=== PATIENT | male | born 1980 | race Caucasian/White ===

== ENCOUNTER 2022-02-27 18:03 | Emergency (ER) | payer OTHER, SELFPAY ==
[2022-02-27 18:17] VITALS: BP 145/88; PULSE 87; RESP 18; TEMP 36.4; O2SAT 100
--- NOTE | 2022-02-27 19:05 | ED.GENADULT ---
HPI - General Adult General Chief complaint: Unspecified Stated complaint: anxiety Source: patient Mode of arrival: ambulatory Limitations: no limitations History of Present Illness HPI narrative: Patient presents requesting refills on his medications. He indicates he ran out of Zoloft 100mg a few weeks ago. [place] and [place] would not fill it because the refill was two days early. He also ran out of lisinopril 10mg/hctz 12.5mg daily five days ago. He denies any chest pain or shortness of breath. He has a hx of migraines and being off his medications has caused an increase in his headaches. He has associated photophobia. He has an increase in anxiety since running out of his medication. 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 He utilizes AA. He spent several hours today trying to identify a new primary care provider without success. No additional complaints or concerns. Related Data Home Medications Medication Instructions Recorded Confirmed eszopiclone 2 mg tablet (Lunesta) 2 mg PO HS 02/27/22 02/27/22 lisinopril 10 1 tablet PO DAILY 02/27/22 02/27/22 mg-hydrochlorothiazide 12.5 mg tablet sertraline 100 mg tablet (Zoloft) 100 mg PO DAILY 02/27/22 02/27/22 trazodone 50 mg tablet 50 mg PO HS 02/27/22 02/27/22 Allergies Allergy/AdvReac Type Severity Reaction Status Date / Time No Known Allergies Allergy Verified 02/27/22 18:32 Review of Systems Review of Systems: CONSTITUTIONAL: Denies fever, chills, or sweats. EYES: Denies visual changes, redness, or discharge. ENT: Denies rhinorrhea, congestion, sore throat, or otalgia. CARDIOVASCULAR: Denies chest pain, palpitations, or edema. RESPIRATORY: Denies cough or dyspnea. GASTROINTESTINAL: Denies abdominal pain, nausea, vomiting, or diarrhea. GENITOURINARY: Denies dysuria or hematuria. SKIN: Denies rash or itching. MUSCULOSKELETAL: Denies back pain, joint pain, or myalgia. NEUROLOGIC: Reports headaches. Denies numbness, dizziness, or weakness. PSYCHIATRIC: Reports anxiety. Denies depression. [facility] Past Medical History Medical History Anxiety Hypertension Migraine PTSD (post-traumatic stress disorder) Surgical History Surgical History No pertinent past surgical history Family History Family History Mother No pertinent past medical history Social History Social History (Updated 02/27/22 @ 19:12 by Jose Dukes [facility], ) Alcohol intake: former Living arrangements: alone Gender identity (if verbalized by the patient): Male Spiritual care concerns: No Exam Narrative: GENERAL: Well-appearing, well-nourished, and in no acute distress. HEAD: Normocephalic, atraumatic. EYES: PERRLA and EOMI. ENT: Nares clear, no rhinorrhea or epistaxis. Mucous membranes moist. Oropharynx without tonsillar hypertrophy exudate or other lesions. Bilateral TMs pearly p[place]man nonbulging NECK: Supple. No adenopathy or masses. No carotid bruits or JVD CHEST: Clear to auscultation. No respiratory distress. No wheezes rales or rhonchi HEART: Regular rate and rhythm. No murmur heard. Normal peripheral pulses. ABDOMEN: Soft, nontender, nondistended, normal active bowel sounds. EXTREMITIES: Normal range of motion. No edema. SKIN: Warm, dry, no rash. NEURO: No focal deficits. Alert and oriented x3. PSYCH: Normal mood and affect. Course Course Emergency Course: This is a 41-year-old male who presents requesting refills on his medications. This seems reasonable. He will attempt to establish care with a new primary care provider. Also give him some Vistaril to hold him over in terms of his anxiety until his zoloft kicks in. He should follow up outpatient for further evaluation and return for worsening symptoms. Pt in a
== END 2022-02-27 19:13 | disposition home or self-care (01) ==
PROVIDERS: Emergency Provider Nurse Practitioner
DX: F41.9 Anxiety disorder, unspecified (principal); I10 Essential (primary) hypertension
CPT/HCPCS: 99211; G0463

== ENCOUNTER 2024-11-23 00:30 | Day surgery (SDC) | payer OTHER, SELFPAY ==
[2024-11-11 09:37] VITALS: BMI 31.3
--- OUTSIDE RECORDS SUMMARY | 2024-11-23 00:33 | XMS_ITS | Continuity of Care Document ---
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 Medication Details Route Status Patient Instructions Prescription Expires Prescription Number Last Dispense Date Ordering Provider Order Date Order Qty Source Adderall XR 20 mg oral capsule, extended release 1 cap(s), Oral, BID, SM to take 1 CAP PO QAM and 1 CAP PO Q1300 for total of 40mg total daily, # 180 cap(s), 0 total refill(s ), Maintenzander schreiber, Pharmacy : [facility] Oral (given by mouth) Ordered 2 2021 180.0 [id number] Adderall XR 20 mg oral capsule, extended release 1 cap(s), Oral, As Directed , Take 1 CAP PO QAM and Q1300; not to exceed 40mg PO total daily, # 14 cap(s), 0 total refill(s ), Maintena nce, PreAuth for previous agent Vyvanse was declined -need 1 week supply until next assessme nt, Pharmacy : [facility] Oral (given by mouth) Complet ed 01/05/2022 2 2021 14.0 [id number] escitalopra m 20 mg oral tablet escitalo pram 20 mg oral tablet Start Date: 03/16/20 Stop Date: 01/05/22 Status: Complete d Repeat number: 1 Complet ed 01/05/20222021 No Facilit y Access magnesium oxide 400 mg (241.3 mg elemental magnesium) oral tablet magnesiu m oxide 400 mg (241.3 mg elementa l magnesiu m) oral tablet Start Date: 03/08/20 Status: Ordered Repeat number: 1 Ordered 2019 No Facilit y Access nicotine 2 mg oral transmucosa l gum nicotine 2 mg oral transmuc osal gum Start Date: 07/31/19 Status: Ordered Repeat number: 1 Ordered 2019 No Facilit y Access riboflavin 100 mg oral tablet riboflav in 100 mg oral tablet Start Date: 03/08/20 Status: Ordered Repeat number: 1 Ordered 2019 No Facilit y Access sertraline 100 mg oral tablet 2 tab(s), Oral, Daily, # 180 tab(s), 0 total refill(s ), [facility], Pharmacy : [facility] Oral (given by mouth) Ordered 2021 180.0 [id number] sertraline 100 mg oral tablet 2 tab(s), Oral, Daily, # 60 tab(s), 0 total refill(s ), [facility], Pharmacy : [facility] Oral (given by mouth) Complet ed 01/05/2022 2 2021 60.0 [id number] sildenafil 100 mg oral tablet sildenaf il 100 mg oral tablet Start Date: 03/08/20 Status: Ordered Repeat number: 1 Ordered 2019 No Facilit y Access traZODone 100 mg oral tablet 1 tab(s), Oral, every day at bedtime, PRN sleep, # 90 tab(s), 0 total refill(s ), [facility], Pharmacy : [facility] Oral (given by mouth) Ordered 2 2021 90.0 [id number] traZODone 50 mg oral tablet 2 tab(s), Oral, every day at bedtime, PRN sleep, # 60 tab(s), 0 total refill(s ), [facility], Pharmacy : [facility] Oral (given by mouth) Complet ed 01/05/2022 2 2021 60.0 [id number] ubiquinone 200 mg oral capsule ubiquino ne 200 mg oral capsule Start Date: 04/21/20 Status: Ordered Repeat number: 1 Ordered 2019 No Facilit y Access Vyvanse 50 mg oral capsule 1 cap(s), Oral, every morning, # 20 cap(s), 0 total refill(s ), Maintena nce, Pharmacy : [facility] Oral (given by mouth) Discont inued 01/05/20222021 20.0 [facility] Vyvanse 60 mg oral capsule 1 cap(s), Oral, every morning, # 7 cap(s), 0 total refill(s ), Maintena nce, Slight increase in dose. SM needs 1 week bridge until next appointm ent on , Pharmacy : [facility] Oral (given by mouth) Discont inued 01/05/20222021 7.0 [facility] Allergies, Adverse Reactions, Alerts Combined list of allergies from Department of Defense and Veterans Affairs facilities. It does not include entries that were removed or entered in error. Substance Category Reaction Severity Reaction type Status Date Reported Comments Source NO KNOWN ALLERGIES Propensity to adverse reactions to substance Active Unknown Organization Immunizations Combined list of available immunizations from the Department of Defense and Veterans Affairs facilities. Immunization Series Date Given Administered By Site Reaction Lot Number CVX Code Drug Congressional Aide Status Comments Source influenza, injectable, quadrivalent- pf 2018 [id number] 150 [employer] complet ed influenza , injectabl e, quadrival ent-pf 06/12/19 Given Ambulat ory Pharmac y influenza, injectable, quadrivalent- pf 2017 [id number] 150 [employer] complet ed influenza , injectabl e, quadrival ent-pf 07/11/18 Given Ambulat ory Pharmac y influenza, injectable, quadrivalent- pf 2017 [id number] 150 [employer] complet ed influenza , injectabl e, quadrival ent-pf 07/11/18 Given Ambulat ory Pharmac y influenza, injectable, quadrivalent- pf 2017 [id number] 150 [employer] complet ed influenza , injectabl e, quadrival ent-pf 07/11/18 Given Ambulat ory Pharmac y influenza, seasonal, injectable-pf 2015 [id number] 140 [employer] complet ed influenza , seasonal, injectabl e-pf 06/22/16 Given Ambulat ory Pharmac y influenza, seasonal, injectable-pf 2015 [id number] 140 [employer] complet ed influenza , seasonal, injectabl e-pf 06/22/16 Given Ambulat ory Pharmac y influenza, seasonal, injectable 2014 [id number] Unknown complet ed influenza , seasonal, injectabl e 06/08/15 Given Ambulat ory Pharmac y influenza, seasonal, injectable 2014 [id number] Unknown complet ed influenza , seasonal, injectabl e 06/08/15 Given Ambulat ory Pharmac y tetanus, diphtheria, acellular pertu is 2013 [id number] sanofi pasteur complet ed tetanus, diphtheri a, acellular pertussis 08/23/14 Given Ambulat ory Pharmac y tetanus-dipht h toxoids (Td) adult/adol 2013 [id number] sanofi pasteur complet ed tetanus-d iphth toxoids (Td) adult/ado l 08/23/14 Given Ambulat ory Pharmac y tetanus, diphtheria, acellular pertu is 2013 zzLef t Arm [id number] 115 sanofi pasteur complet ed tetanus, diphtheri a, acellular pertussis 08/23/14 Given Ambulat ory Pharmac y tetanus-dipht h toxoids (Td) adult/adol 2013 [id number] sanofi pasteur complet ed tetanus-d iphth toxoids (Td) adult/ado l 08/23/14 Given Ambulat ory Pharmac y influenza, injectable, quadrivalent 2013 [id number] 158 [employer] complet ed influenza , injectabl e, quadrival ent 07/26/14 Given Ambulat ory Pharmac y influenza, injectable, quadrivalent 2013 [id number] 158 [employer] complet ed influenza , injectabl e, quadrival ent 07/26/14 Given Ambulat ory Pharmac y influenza, live, intranasal,qu adrivalent 2012 [id number] 149 sanofi pasteur complet ed influenza , live, intranasa l,quadriv alent 07/17/13 Given Ambulat ory Pharmac y influenza, live, intranasal,qu adrivalent 2012 [id number] 149 sanofi pasteur complet ed influenza , live, intranasa l,quadriv alent 07/17/13 Given Ambulat ory Pharmac y typhoid Vi capsular polysaccharid e vac 2012 UNK 101 [facility] complet ed typhoid Vi capsular polysacch aride vac 09/28/12 Given Ambulat ory Pharmac y typhoid Vi capsular polysaccharid e vac 2012 UNK 101 [facility] complet ed typhoid Vi capsular polysacch aride vac 09/28/12 Given Ambulat ory Pharmac y influenza virus vaccine, live 2011 [id number] [employer] comple t ed influenza virus vaccine, live 05/31/12 Given Ambulat ory Pharmac y influenza virus vaccine, live 2011 [id number] 111 [employer] Inc comple t ed influenza virus vaccine, live 05/31/12 Given Ambulat ory Pharmac y Peruvian Encephalitis IM 2011 [id number] 134 [employer] complet ed Peruvian Encephali tis IM 04/15/12 Given Ambulat ory Pharmac y Peruvian Encephalitis IM 2011 [id number] 134 [employer] Inc complet ed Peruvian Encephali tis IM 04/15/12 Given Ambulat ory Pharmac y anthrax vaccine 2011 UNK 24 complet ed anthrax vaccine 02/29/12 Given Ambulat ory Pharmac y yellow fever vaccine 2011 UNK 37 [employer] complet ed yellow fever vaccine 02/29/12 Given Ambulat ory Pharmac y anthrax vaccine 2011 UNK 24 complet ed anthrax vaccine 02/29/12 Given Ambulat ory Pharmac y yellow fever vaccine 2011 UNK 37 [employer] complet ed yellow fever vaccine 02/29/12 Given Ambulat ory Pharmac y influenza virus vaccine, whole virus 2010 [id number] [employer] comple t ed influenza virus vaccine, whole virus 05/23/11 Given Ambulat ory Pharmac y typhoid Vi capsular polysaccharid e vac 2009 UNK 101 [employer] complet ed typhoid Vi capsular polysacch aride vac 07/28/10 Given Ambulat ory Pharmac y tuberculin purified protein derivative 2009 [id number] sanofi pasteur complet ed tuberculi n purified protein derivativ e 07/28/10 Given Ambulat ory Pharmac y hepatitis B adult vaccine 2009 UNK 43 GlaxoSmithK[employer] ne complet ed hepatitis B adult vaccine 07/28/10 Given Ambulat ory Pharmac y influenza virus vaccine, live 2009 [id number] 111 [employer] comple t ed influenza virus vaccine, live 07/28/10 Given Ambulat ory Pharmac y influenza virus vaccine, live 2009 [id number] 111 [employer] comple t ed influenza virus vaccine, live 07/28/10 Given Ambulat ory Pharmac y hepatitis B adult vaccine 2009 UNK 43 GlaxoSmithK[employer] ne complet ed hepatitis B adult vaccine 07/28/10 Given Ambulat ory Pharmac y typhoid Vi capsular polysaccharid e vac 2009 UNK 101 [employer] [facility] complet ed typhoid Vi capsular polysacch aride vac 07/28/10 Given Ambulat ory Pharmac y influenza virus vaccine, live 2008 UNK 111 Unknown complet ed influenza virus vaccine, live 06/24/09 Given Ambulat ory Pharmac y influenza virus vaccine, live 2008 UNK 111 Unknown complet ed influenza virus vaccine, live 06/24/09 Given Ambulat ory Pharmac y hepatitis B adult vaccine 2007 UNK 43 GlaxoSmithK[employer] ne complet ed hepatitis B adult vaccine 08/02/08 Given Ambulat ory Pharmac y influenza virus vaccine, live 2007 UNK 111 [employer] comple t ed influenza virus vaccine, live 06/14/08 Given Ambulat ory Pharmac y hepatitis B adult vaccine 2007 UNK 43 GlaxoSmithKli ne complet ed hepatitis B adult vaccine 06/14/08 Given Ambulat ory Pharmac y hepatitis B adult vaccine 2007 UNK 43 GlaxoSmithK[employer] complet ed hepatitis B adult vaccine 06/14/08 Given Ambulat ory Pharmac y influenza virus vaccine, live 2007 UNK 111 [employer] comple t ed influenza virus vaccine, live 06/14/08 Given Ambulat ory Pharmac y anthrax vaccine 2006 UNK 24 [employer] complet ed anthrax vaccine 08/04/07 Given Ambulat ory Pharmac y anthrax vaccine 2006 UNK 24 [employer] complet ed anthrax vaccine 08/04/07 Given Ambulat ory Pharmac y influenza virus vaccine,split 2006 UNK 15 [employer] Inc comple t ed influenza virus vaccine,s plit 06/19/07 Given Ambulat ory Pharmac y influenza virus vaccine,split 2006 UNK 15 [employer] comple t ed influenza virus vaccine,s plit 06/19/07 Given Ambulat ory Pharmac y typhoid Vi capsular polysaccharid e vac 2006 [id number] sanofi pasteur complet ed typhoid Vi capsular polysacch aride vac 10/07/06 Given Ambulat ory Pharmac y typhoid Vi capsular polysaccharid e vac 2006 [id number] 101 sanofi pasteur complet ed typhoid Vi capsular polysacch aride vac 10/07/06 Given Ambulat ory Pharmac y influenza virus vaccine, live 2005 [id number] 111 [employer] Inc comple t ed influenza virus vaccine, live 07/29/06 Given Ambulat ory Pharmac y influenza virus vaccine, live 2005 [id number] 111 [employer] comple t ed influenza virus vaccine, live 07/29/06 Given Ambulat ory Pharmac y anthrax vaccine 2005 UNK 24 [employer] complet ed anthrax vaccine 09/21/05 Given Ambulat ory Pharmac y anthrax vaccine 2005 UNKNOWN 24 Unknown complet ed anthrax vaccine 09/21/05 Given Ambulat ory Pharmac y influenza virus vaccine, unspecified 2004 [id number] Unknown complet ed influenza virus vaccine, unspecifi ed 07/05/05 Given Ambulat ory Pharmac y influenza virus vaccine, unspecified 2004 [id number] 88 Unknown complet ed influenza virus vaccine, unspecifi ed 07/05/05 Given Ambulat ory Pharmac y measles/mumps /rubella virus vaccine 2004 UNK 03 Unknown complet ed measles/m umps/rube lla virus vaccine 01/04/05 Given Ambulat ory Pharmac y Peruvian Encephalitis vaccine, SC 2004 UNKNOWN 39 Unknown complet ed Peruvian Encephali tis vaccine, SC 01/04/05 Given Ambulat ory Pharmac y Peruvian Encephalitis vaccine, SC 2004 UNKNOWN 39 Unknown complet ed Peruvian Encephali tis vaccine, [place] 01/04/05 Given Ambulat ory Pharmac y measles/mumps /rubella virus vaccine 2004 UNKNOWN 03 Unknown complet ed measles/m umps/rube lla virus vaccine 01/04/05 Given Ambulat ory Pharmac y Peruvian Encephalitis vaccine, SC 2003 UNKNOWN 39 Unknown complet ed Peruvian Encephali tis vaccine, SC 09/05/04 Given Ambulat ory Pharmac y typhoid vaccine, parenteral 2003 UNKNOWN 41 Unknown complet ed typhoid vaccine, parentera l 09/05/04 Given Ambulat ory Pharmac y measles and rubella virus vaccine 2003 UNKNOWN 04 Unknown complet ed measles and rubella virus vaccine 09/05/04 Given Ambulat ory Pharmac y measles/mumps /rubella virus vaccine 2003 UNK 03 Unknown complet ed measles/m umps/rube lla virus vaccine 09/05/04 Given Ambulat ory Pharmac y Peruvian Encephalitis vaccine, SC 2003 UNKNOWN 39 Unknown complet ed Peruvian Encephali tis vaccine, [place] 09/05/04 Given Ambulat ory Pharmac y measles and rubella virus vaccine 2003 UNKNOWN 04 Unknown complet ed measles and rubella virus vaccine 09/05/04 Given Ambulat ory Pharmac y typhoid vaccine, parenteral 2003 UNKNOWN 41 Unknown complet ed typhoid vaccine, parentera l 09/05/04 Given Ambulat ory Pharmac y measles/mumps /rubella virus vaccine 2003 UNKNOWN 03 Unknown complet ed measles/m umps/rube lla virus vaccine 09/05/04 Given Ambulat ory Pharmac y tetanus, diphtheria, acellular pertu is 2003 UNK 115 Unknown complet ed tetanus, diphtheri a, acellular pertussis 08/18/04 Given Ambulat ory Pharmac y influenza virus vaccine,split 2003 UNKNOWN 15 Unknown complet ed influenza virus vaccine,s plit 08/18/04 Given Ambulat ory Pharmac y diphtheria/te tanus toxoids/pertu is 2003 UNKNOWN 01 Unknown complet ed diphtheri a/tetanus toxoids/p ertussis 08/18/04 Given Ambulat ory Pharmac y tetanus, diphtheria, acellular pertu is 2003 UNK 115 Unknown complet ed tetanus, diphtheri a, acellular pertussis 08/18/04 Given Ambulat ory Pharmac y influenza virus vaccine,split 2003 UNKNOWN 15 Unknown complet ed influenza virus vaccine,s plit 08/18/04 Given Ambulat ory Pharmac y diphtheria/te tanus toxoids/pertu is 2003 UNKNOWN 01 Unknown complet ed diphtheri a/tetanus toxoids/p ertussis 08/18/04 Given Ambulat ory Pharmac y measles/mumps /rubella virus vaccine 2003 UNKNOWN 03 Unknown complet ed measles/m umps/rube lla virus vaccine 05/26/04 Given Ambulat ory Pharmac y Peruvian Encephalitis vaccine, [place] 2003 UNKNOWN 39 Unknown complet ed Peruvian Encephali tis vaccine, [place] 05/26/04 Given Ambulat ory Pharmac y measles/mumps /rubella virus vaccine 2003 UNKNOWN 03 Unknown complet ed measles/m umps/rube lla virus vaccine 05/26/04 Given Ambulat ory Pharmac y Peruvian Encephalitis vaccine, PA 2003 UNKNOWN 39 Unknown complet ed Peruvian Encephali tis vaccine, [place] 05/26/04 Given Ambulat ory Pharmac y anthrax vaccine 2003 [id number] 24 Unknown complet ed anthrax vaccine 01/12/04 Given Ambulat ory Pharmac y poliovirus vaccine, live, oral 2003 [id number] 02 Unknown complet ed polioviru s vaccine, live, oral 01/12/04 Given Ambulat ory Pharmac y anthrax vaccine 2003 [id number] 24 Unknown complet ed anthrax vaccine 01/12/04 Given Ambulat ory Pharmac y poliovirus vaccine, live, oral 2003 [id number] 02 Unknown complet ed polioviru s vaccine, live, oral 01/12/04 Given Ambulat ory Pharmac y hepatitis A adult vaccine 2002 [id number] 52 [employer] Inc complet ed hepatitis A adult vaccine 08/25/03 Given Ambulat ory Pharmac y measles virus vaccine 2002 [id number] 05 [employer] complet ed measles virus vaccine 08/25/03 Given Ambulat ory Pharmac y measles virus vaccine 2002 [id number] 05 [employer] complet ed measles virus vaccine 08/25/03 Given Ambulat ory Pharmac y hepatitis A adult vaccine 2002 [id number] 52 [employer] complet ed hepatitis A adult vaccine 08/25/03 Given Ambulat ory Pharmac y poliovirus vaccine, live, oral 2002 [id number] 02 Unknown complet ed polioviru s vaccine, live, oral 08/03/03 Given Ambulat ory Pharmac y diphtheria/te tanus toxoids/pertu is 2002 [id number] 01 [employer] ls complet ed diphtheri a/tetanus toxoids/p ertussis 08/03/03 Given Ambulat ory Pharmac y anthrax vaccine 2002 [id number] 24 Unknown complet ed anthrax vaccine 08/03/03 Given Ambulat ory Pharmac y influenza virus vaccine,split 2002 [id number] 15 [employer] ls complet ed influenza virus vaccine,s plit 08/03/03 Given Ambulat ory Pharmac y influenza virus vaccine,split 2002 [id number] 15 [employer] ls complet ed influenza virus vaccine,s plit 08/03/03 Given Ambulat ory Pharmac y diphtheria/te tanus toxoids/pertu is 2002 [id number] 01 [employer] ls complet ed diphtheri a/tetanus toxoids/p ertussis 08/03/03 Given Ambulat ory Pharmac y anthrax vaccine 2002 [id number] 24 Unknown complet ed anthrax vaccine 08/03/03 Given Ambulat ory Pharmac y poliovirus vaccine, live, oral 2002 [id number] 02 Unknown complet ed polioviru s vaccine, live, oral 08/03/03 Given Ambulat ory Pharmac y mumps virus vaccine 2002 [id number] 07 [facility] complet ed mumps virus vaccine 09/30/02 Given Ambulat ory Pharmac y vaccinia (smallpox) vaccine 2002 [id number] 75 [facility] complet ed vaccinia (smallpox ) vaccine 09/30/02 Given Ambulat ory Pharmac y mumps virus vaccine 2002 [id number] 07 [facility] complet ed mumps virus vaccine 09/30/02 Given Ambulat ory Pharmac y vaccinia (smallpox) vaccine 2002 [id number] 75 [facility] complet ed vaccinia (smallpox ) vaccine 09/30/02 Given Ambulat ory Pharmac y hepatitis A adult vaccine 2002 UNKNOWN 52 Unknown complet ed hepatitis A adult vaccine 09/21/02 Given Ambulat ory Pharmac y hepatitis A adult vaccine 2002 UNKNOWN 52 Unknown complet ed hepatitis A adult vaccine 09/21/02 Given Ambulat ory Pharmac y measles and rubella virus vaccine 2001 UNKNOWN 04 Unknown complet ed measles and rubella virus vaccine 09/04/02 Given Ambulat ory Pharmac y anthrax vaccine 2001 [id number] Unknown complet ed anthrax vaccine 09/04/02 Given Ambulat ory Pharmac y poliovirus vaccine, live, oral 2001 [id number] 02 Unknown complet ed polioviru s vaccine, live, oral 09/04/02 Given Ambulat ory Pharmac y typhoid vaccine, parenteral 2001 UNKNOWN 41 Unknown complet ed typhoid vaccine, parentera l 09/04/02 Given Ambulat ory Pharmac y anthrax vaccine 2001 [id number] 24 Unknown complet ed anthrax vaccine 09/04/02 Given Ambulat ory Pharmac y measles and rubella virus vaccine 2001 UNKNOWN 04 Unknown complet ed measles and rubella virus vaccine 09/04/02 Given Ambulat ory Pharmac y poliovirus vaccine, live, oral 2001 [id number] 02 Unknown complet ed polioviru s vaccine, live, oral 09/04/02 Given Ambulat ory Pharmac y typhoid vaccine, parenteral 2001 UNKNOWN 41 Unknown complet ed typhoid vaccine, parentera l 09/04/02 Given Ambulat ory Pharmac y anthrax vaccine 2001 [id number] 24 Unknown complet ed anthrax vaccine 08/21/02 Given Ambulat ory Pharmac y poliovirus vaccine, live, oral 2001 [id number] 02 Unknown complet ed polioviru s vaccine, live, oral 08/21/02 Given Ambulat ory Pharmac y anthrax vaccine 2001 [id number] 24 Unknown complet ed anthrax vaccine 08/21/02 Given Ambulat ory Pharmac y poliovirus vaccine, live, oral 2001 [id number] 02 Unknown complet ed polioviru s vaccine, live, oral 08/21/02 Given Ambulat ory Pharmac y poliovirus vaccine, live, oral 2001 [id number] 02 Unknown complet ed polioviru s vaccine, live, oral 08/05/02 Given Ambulat ory Pharmac y anthrax vaccine 2001 [id number] 24 Unknown complet ed anthrax vaccine 08/05/02 Given Ambulat ory Pharmac y anthrax vaccine 2001 [id number] 24 Unknown complet ed anthrax vaccine 08/05/02 Given Ambulat ory Pharmac y poliovirus vaccine, live, oral 2001 [id number] 02 Unknown complet ed polioviru s vaccine, live, oral 08/05/02 Given Ambulat ory Pharmac y influenza virus vaccine,split 2001 UNKNOWN 15 Unknown complet ed influenza virus vaccine,s plit 06/21/02 Given Ambulat ory Pharmac y diphtheria/te tanus toxoids/pertu is 2001 UNKNOWN 01 Unknown complet ed diphtheri a/tetanus toxoids/p ertussis 06/21/02 Given Ambulat ory Pharmac y diphtheria/te tanus toxoids/pertu is 2001 UNKNOWN 01 Unknown complet ed diphtheri a/tetanus toxoids/p ertussis 06/21/02 Given Ambulat ory Pharmac y influenza virus vaccine,split 2001 UNKNOWN 15 Unknown complet ed influenza virus vaccine,s plit 06/21/02 Given Ambulat ory Pharmac y measles virus vaccine 2001 UNKNOWN 05 Unknown complet ed measles virus vaccine 02/05/02 Given Ambulat ory Pharmac y tetanus-dipht h toxoids (Td) adult/adol 2001 UNKNOWN 09 Unknown complet ed tetanus-d iphth toxoids (Td) adult/ado l 02/05/02 Given Ambulat ory Pharmac y diphtheria/te tanus toxoids/pertu is 2001 UNKNOWN 01 Unknown complet ed diphtheri a/tetanus toxoids/p ertussis 02/05/02 Given Ambulat ory Pharmac y hepatitis A adult vaccine 2001 UNKNOWN 52 Unknown complet ed hepatitis A adult vaccine 02/05/02 Given Ambulat ory Pharmac y poliovirus vaccine, inactivated 2001 UNKNOWN 10 Unknown complet ed polioviru s vaccine, inactivat ed 02/05/02 Given Ambulat ory Pharmac y measles/mumps /rubella virus vaccine 2001 UNKNOWN 03 Unknown complet ed measles/m umps/rube lla virus vaccine 02/05/02 Given Ambulat ory Pharmac y yellow fever vaccine 2001 UNKNOWN 37 Unknown complet ed yellow fever vaccine 02/05/02 Given Ambulat ory Pharmac y yellow fever vaccine 2001 UNKNOWN 37 Unknown complet ed yellow fever vaccine 02/05/02 Given Ambulat ory Pharmac y poliovirus vaccine, inactivated 2001 UNKNOWN 10 Unknown complet ed polioviru s vaccine, inactivat ed 02/05/02 Given Ambulat ory Pharmac y measles virus vaccine 2001 UNKNOWN 05 Unknown complet ed measles virus vaccine 02/05/02 Given Ambulat ory Pharmac y hepatitis A adult vaccine 2001 UNKNOWN 52 Unknown complet ed hepatitis A adult vaccine 02/05/02 Given Ambulat ory Pharmac y measles/mumps /rubella virus vaccine 2001 UNKNOWN 03 Unknown complet ed measles/m umps/rube lla virus vaccine 02/05/02 Given Ambulat ory Pharmac y diphtheria/te tanus toxoids/pertu is 2001 UNKNOWN 01 Unknown complet ed diphtheri a/tetanus toxoids/p ertussis 02/05/02 Given Ambulat ory Pharmac y tetanus-dipht h toxoids (Td) adult/adol 2001 UNKNOWN 09 Unknown complet ed tetanus-d iphth toxoids (Td) adult/ado l 02/05/02 Given Ambulat ory Pharmac y meningococcal polysaccharid e (MPSV4) 2001 UNKNOWN 32 Unknown complet ed meningoco ccal polysacch aride (MPSV4) 12/30/01 Given Ambulat ory Pharmac y diphtheria/te tanus toxoids/pertu is 2001 UNKNOWN 01 Unknown complet ed diphtheri a/tetanus toxoids/p ertussis 12/30/01 Given Ambulat ory Pharmac y influenza virus vaccine,split 2001 UNKNOWN 15 Unknown complet ed influenza virus vaccine,s plit 12/30/01 Given Ambulat ory Pharmac y measles/mumps /rubella virus vaccine 2001 UNKNOWN 03 Unknown complet ed measles/m umps/rube lla virus vaccine 12/30/01 Given Ambulat ory Pharmac y meningococcal polysaccharid e (MPSV4) 2001 UNKNOWN 32 Unknown complet ed meningoco ccal polysacch aride (MPSV4) 12/30/01 Given Ambulat ory Pharmac y influenza virus vaccine,split 2001 UNKNOWN 15 Unknown complet ed influenza virus vaccine,s plit 12/30/01 Given Ambulat ory Pharmac y diphtheria/te tanus toxoids/pertu is 2001 UNKNOWN 01 Unknown complet ed diphtheri a/tetanus toxoids/p ertussis 12/30/01 Given Ambulat ory Pharmac y measles/mumps /rubella virus vaccine 2001 UNKNOWN 03 Unknown complet ed measles/m umps/rube lla virus vaccine 12/30/01 Given Ambulat ory Pharmac y Procedures Combined list of: 1) Procedures from Department of [facility] going [facility] up to [facility] 18 months, not all [facility] non-surgical procedures are included; 2) All procedures from the [facility] facilities. Procedure Procedure Type Code Date Perfomer Comments Sourc e No data available for this section Ambulatory P harmacy Social History Combined list of available smoking, tobacco, and other social history from [facility] and [facility] facilities. Social History Type Response Date Comment Sourc e Sex Representation Male 04/21/2020 Unknow n Organization Sexual Orientation Ambula tory Pharmacy Gender identity Ambulator y Pharmacy Assessment and Plan Combined list of future care activities from [facility] and [facility] facilities (e.g., assessment and plan notes, appointments, orders, and referrals). Additional future care activities may be listed in the Plan of Care section. Result Assessment and Plan Date Source Assessment and Plan Extracted from:Title : final Author: LUCIA LOPEZ Date: 01/03/22 1. E XAM, FORMAL OCCUPATIONAL HEALTH PROGRAM INCLUDING HEARING CONSERVATION PROGRAM, DUE TO TERMINATION OF OCCUPATIONAL WORKPLACE EXPOSURE 1) PT is to follow-up in 72 hours with [facility] for follow up testing, after 14 hours of auditory rest 2) PT indicated understanding and signed statement on audiogram that is attached in [facility] 11/23/[address] [place] [address] Isael Functional Status Combined list of recent functional and cognitive assessments recorded at [facility] ([facility]VA Functional [place] Measurement (FIM) Scale: 1 = Total Assistance (Subject = 0% +), 2 = Maximal Assistance (Subject = 25% +), 3 = Moderate Assistance (Subject = 50% +), 4 = Minimal Assistance (Subject = 75% +), 5 = Supervision, 6 = Modified [place] (Device), 7 = Complete [place] (Timely, Safely). Assessment Date/Time Source Assessment Type Assessment Skill Assessment Score Assessment Details No data available for this section
[2024-11-23 13:18] VITALS: BP 140/97; PULSE 80; RESP 20; TEMP 36.1; O2SAT 99
--- NOTE | 2024-11-23 13:25 | WPDANESEPPF ---
Anes - Initial Pre Proc Eval Procedure: Operation Date: 11/23/24 14:30 Proposed Procedures p Screening Colonoscopy - Frederick Hinds MD Date/Time: 11/23/24 13:25 Surgeon: Frederick Hinds MD Pre Op Diagnosis: screening colon Patient Data Age: 44 Gender: M Height: 1.78 m Weight: 100.4 kg Last Vital Signs Temp 36.1 C L 11/23/24 13:18 Pulse 80 11/23/24 13:18 Resp 20 11/23/24 13:18 BP 140/97 H 11/23/24 13:18 Pulse Ox 99 11/23/24 13:18 O2 Del Method Room Air 11/23/24 13:18 Allergies Allergy/AdvReac Type Severity Reaction Status Date / Time No Known Allergies Allergy Verified 11/23/24 13:17 Home Medications ?Medication ?Instructions ?Recorded ?Confirmed ?Type rizatriptan 5 mg tablet See Rx Instructions PO .COMPLEX #9 02/13/23 11/23/24 Rx tabs hydroxyzine pamoate 25 mg capsule 25 - 50 mg (1 - 2 x 25 mg) PO TID 07/03/23 11/23/24 Rx (Vistaril) PRN anxiety #90 caps lisinopril 10 1 tablet PO DAILY #90 tabs 04/20/24 11/23/24 Rx mg-hydrochlorothiazide 12.5 mg tablet sertraline 100 mg tablet 100 mg PO DAILY #30 tabs 10/16/24 11/23/24 Rx sertraline 50 mg tablet 50 mg PO DAILY #30 tabs 10/16/24 11/23/24 Rx dextroamphetamine-amphetamine 5 mg 5 mg PO BID #60 tabs 10/29/24 11/23/24 Rx tablet (Adderall) Patient hx anesthesia problems: none Family hx anesthesia problems: none Results Review: All pre-operative results and documents have been reviewed as part of the pre-operative evaluation. [facility] Past Medical History Medical History Depression Screening for colon cancer BMI 32.0-32.9,adult Pilonidal cyst Left groin pain BMI 29.0-29.9,adult Screening for diabetes mellitus Erectile dysfunction Migraine with aura ELLA on CPAP Encounter to establish care Insomnia ADHD Alcoholism no use in 5 years TBI (traumatic brain injury) Sleep apnea Arthritis Hypertension Anxiety Migraine PTSD (post-traumatic stress disorder) Surgical History Surgical History History of vasectomy No pertinent past surgical history Family History Family History Mother Diabetes mellitus Depression Thyroid disease Sibling Hypertension Grandparent Carcinoma of colon Grandparent Carcinoma of colon Social History Social History Smoking packs per day: 1 Smoking cigarettes per day: 20.0 Years smoked: 20 Smoking pack-years: 20.00 Smoking status: Former smoker Tobacco type: cigarettes Alcohol intake: never Substance use: current Substance use type: marijuana Other substance usage details: 2x/month Current Housing: Decline to Answer Concerned About Future Housing: Decline to Answer Difficulty Paying Gas/Electric Bills: Decline to Answer Difficulty Paying for Meds: Decline to Answer Currently Unemployed: Decline to Answer Education: Decline to Answer Difficulty w/ Childcare or Family Care: Decline to Answer Living arrangements: alone Gender identity (if verbalized by the patient): Male Spiritual care concerns: No Anes - Eval Final PreProcedure Day of Procedure 11/23/24 13:25 Patient weight: obese Heart: regular rate and rhythm Lungs: clear to auscultation Airway: Mallampati scale class II Neurological: alert and oriented Last oral intake: >/= 8 hours ASA classification: III Emergent: no Anesthetic plan: proceed Anesthesia type and monitoring: general GIVS and standard monitoring Results Review: All pre-operative results and documents have been reviewed as part of the pre-operative evaluation. Informed Consent: The patient's anesthetic plan and its attendant risks and benefits were discussed with the patient/family/POA. Questions were solicited and answers provided to the satisfaction of the patient/family/POA.
[2024-11-23] MEDS: LACTATED RINGERS 1,000 ML 150 ML IV CONT (13:27)
--- NOTE | 2024-11-23 14:01 | PM.HPGS ---
History of Present Illness History of Present Illness Consent: Risks, benefits, and alternatives have been discussed and questions answered. Patient agrees to proceed with procedure. Chief complaint: screening colon Narrative: Daniel Fajardo is a 44 year old male here for screening colonoscopy, last one 2020 Review of Systems Review of Systems: All systems reviewed & are unremarkable except as noted in HPI and below PMFSH Past Medical History Medical History Depression Screening for colon cancer BMI 32.0-32.9,adult Pilonidal cyst Left groin pain BMI 29.0-29.9,adult Screening for diabetes mellitus Erectile dysfunction Migraine with aura ELLA on CPAP Encounter to establish care Insomnia ADHD Alcoholism no use in 5 years TBI (traumatic brain injury) Sleep apnea Arthritis Hypertension Anxiety Migraine PTSD (post-traumatic stress disorder) Surgical History Surgical History History of vasectomy No pertinent past surgical history Family History Family History Mother Diabetes mellitus Depression Thyroid disease Sibling Hypertension Grandparent Carcinoma of colon Grandparent Carcinoma of colon Social History Social History Smoking packs per day: 1 Smoking cigarettes per day: 20.0 Years smoked: 20 Smoking pack-years: 20.00 Smoking status: Former smoker Tobacco type: cigarettes Alcohol intake: never Substance use: current Substance use type: marijuana Other substance usage details: 2x/month Current Housing: Decline to Answer Concerned About Future Housing: Decline to Answer Difficulty Paying Gas/Electric Bills: Decline to Answer Difficulty Paying for Meds: Decline to Answer Currently Unemployed: Decline to Answer Education: Decline to Answer Difficulty w/ Childcare or Family Care: Decline to Answer Living arrangements: alone Gender identity (if verbalized by the patient): Male Spiritual care concerns: No Meds Home Medications and Allergies Home Medications ?Medication ?Instructions ?Recorded ?Confirmed ?Type rizatriptan 5 mg tablet See Rx Instructions PO .COMPLEX #9 02/13/23 11/23/24 Rx tabs hydroxyzine pamoate 25 mg capsule 25 - 50 mg (1 - 2 x 25 mg) PO TID 07/03/23 11/23/24 Rx (Vistaril) PRN anxiety #90 caps lisinopril 10 1 tablet PO DAILY #90 tabs 04/20/24 11/23/24 Rx mg-hydrochlorothiazide 12.5 mg tablet sertraline 100 mg tablet 100 mg PO DAILY #30 tabs 10/16/24 11/23/24 Rx sertraline 50 mg tablet 50 mg PO DAILY #30 tabs 10/16/24 11/23/24 Rx dextroamphetamine-amphetamine 5 mg 5 mg PO BID #60 tabs 10/29/24 11/23/24 Rx tablet (Adderall) Allergies Allergy/AdvReac Type Severity Reaction Status Date / Time No Known Allergies Allergy Verified 11/23/24 13:17 Vital Signs Vital Signs - 24 hr 11/23/24 13:18 Temperature 96.9 F L Pulse Rate 80 Respiratory Rate 20 Blood Pressure 140/97 H Pulse Oximetry 99 Oxygen Delivery Room Air Exam Const: General: comfortable and no acute distress HENMT: Face/Nose/Sinus: Normal nares present Eyes: General: appearance normal, both eyes and all related structures Neck: Neck: no JVD Resp: Auscultation: clear to auscultation bilaterally Cardio: Rate: regular rate Rhythm: regular rhythm GI: Inspection: non-distended GI Palp: Yes Soft to palpation Skin: General skin exam: normal color Neuro: General: gait normal Speech: normal speech Extrem: General: normal to inspection Psych: Mental Status: mental status grossly normal Assessment and Plan Assessment and plan (1) Screening for colon cancer: Code(s): Z12.11 - Encounter for screening for malignant neoplasm of colon Status: Acute Assessment and Plan: colonoscopy
[2024-11-23 14:21] VITALS: BP 114/70; PULSE 67; RESP 16; O2SAT 100
[2024-11-23 14:31] VITALS: BP 110/57; PULSE 73; RESP 18; O2SAT 100
[2024-11-23 14:41] VITALS: BP 120/79; PULSE 62; RESP 14; O2SAT 100
== END 2024-11-23 14:40 | disposition home or self-care (01) ==
PROVIDERS: PCP Nurse Practitioner Family; Referring Provider Nurse Practitioner Family; Visit Provider Internal Medicine Gastroenterology
PROC: 0DJD8ZZ Inspection of Lower Intestinal Tract, Via Natural or Artificial Opening Endoscopic (ICD-10-PCS; CPT 45378; principal; 2024-11-23 14:30)
DX: Z12.11 Encounter for screening for malignant neoplasm of colon (principal); Z87.891 Personal history of nicotine dependence; F12.90 Cannabis use, unspecified, uncomplicated; E66.9 Obesity, unspecified; Z68.31 Body mass index [BMI] 31.0-31.9, adult
CPT/HCPCS: 45378; J2003; J2704; J7120

== ENCOUNTER 2025-03-22 01:58 | Day surgery (SDC) | payer OTHER, SELFPAY ==
[2025-03-11 11:56] VITALS: BMI 32.3
--- NOTE | 2025-03-11 12:02 | PC.NURSE ---
Report to the Outpatient Waiting Room, entrance under the green pavilion located off [facility], at time _1000_ on date _[id number]_. Planned Procedure Time: _1200_.? Time changes happen often and if your time is changed the preop area will call you the afternoon before. - You and your visitor will be asked to self-screen and do not enter if you have any COVID symptoms. Please call surgeon if you need to reschedule. - A mask is optional within the hospital at this time. Patients may have clear liquids (water, carbonated beverages, clear teas, apple juice) until 3 hours prior to surgery with a maximum of 20 ounces. - No food from midnight until time of surgery and no smoking, or chewing tobacco (or any form of nicotine). No chewing gum, candy or mints. Take only the following medications with a SIP of water on the morning of surgery: ___Sertraline____ DO NOT STOP ANY OF YOUR OTHER PRESCRIPTION MEDICATIONS PRIOR TO SURGERY EXCEPT THE FOLLOWING Hold all vitamins and supplements for 3 days per anesthesiologist. Medications to discontinue per physician Date to take last dose Please no make-up, nail somali, hairspray, perfume, deodorant, or body powder the day of surgery.? No jewelry (including any body piercings) or valuables the day of surgery, leave them at home.? Please take a shower or bath the night before, or the morning of, surgery with an antibacterial soap.? Wear comfortable, loose fitting clothing.? - Jewelry must be removed prior to entering the operating room.? Rings and piercings that are not removed may be cut off. - The hospital will not accept responsibility for valuables.? - Please leave all valuables, including medications, at home the day of surgery. If you are going home after surgery, a licensed truck driver flatbed must drive you home.? - NO public transportation without another adult if you receive anesthesia. - We recommend that an adult stay with you for 24 hours following discharge. - We also recommend that you do not drive, make important decision, drink alcoholic beverages, or take any drugs that were not prescribed by your health care provider for at least 24 hours after your discharge time. Follow any additional instructions given to you from your surgeon. Telephone instructions given to __Andy___and asked if any additional questions and then verbalized understanding. Patient advised to call surgeon office or pre surgery nurse liaison [phone] if any additional questions.
[2025-03-22] VITALS (8 sets, daily range): BP systolic 101–128; BP diastolic 61–84; PULSE 58–82; RESP 10–20; TEMP 35.8–36.3; O2SAT 98–100; BMI 33.0
--- OUTSIDE RECORDS SUMMARY | 2025-03-22 02:01 | XMS_ITS | Continuity of Care Document ---
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 It does not include entries that were removed or entered in error. 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, bilateral Active Condition DoD groin (inguinal) pain left side Active Condition [facility] Patient Education - Injury Prevention Active Condition DoD Aftercare Following Surgery Of Genitourinary System Inactive Condition DoD visit for: sterilization Inactive Condition [facility] Inquiry And Counseling: Family Planning Active Condition [facility] visit for: ears / hearing exam Active Condition [facility] visit for: administrative purpose Active Condition [facility] Intervention And Counseling On Cessation Of Tobacco Use Active Condition DoD UPPER RESPIRATORY INFECTION Active Condition DoD NICOTINE DEPENDENCE - CONTINUOUS Active Condition 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 ADVISED PAT TO RTC 7-8 MONTHS TO MONITOR WITH DFE DoD REFRACTIVE ERROR - HYPERMETROPIA Active Condition RELEASE SRX [facility] visit for: services physical Active Condition DoD Medications Combined list of outpatient medications from [...] # 180 cap(s), 0 total refill(s ), Maintena nce, Pharmacy : [facility] Oral (given by mouth) Ordered 2 2021 180.0 [facility] Adderall XR 20 mg oral capsule, extended release 1 cap(s), Oral, As Directed , Take 1 CAP PO QAM and Q1300; not to exceed 40mg PO total daily, # 14 cap(s), 0 total refill(s ), Tsering schreiber, PreAuth for previous agent Vyvanse was declined -need 1 week supply until next assessme nt, Pharmacy : [facility] Oral (given by mouth) Complet ed 01/05/2022 2 2021 14.0 [facility] escitalopra m 20 mg oral tablet escitalo pram 20 mg oral tablet Start Date: 03/16/20 Stop Date: 01/05/22 Status: Complete d Repeat number: 1 Complet ed 01/05/20222021 No Facilit y Access LISINOPRIL- HCTZ (LISINOPRIL /HYDROCHLOR OTHIAZIDE), 10-12.5MG, TABLET, ORAL, LUPIN PHARMACEU, 500 ea. BOTTLE Cancele d [id number] : 2023 0 Pharmac y Data Transac tion Service Facilit y magnesium oxide 400 mg (241.3 mg elemental [...] # 180 tab(s), 0 total refill(s ), Tsering schreiber, Pharmacy : [facility] Oral (given by mouth) Ordered 2021 180.0 [facility] sertraline 100 mg oral tablet 2 tab(s), Oral, Daily, # 60 tab(s), 0 total refill(s ), Tsering schreiber, Pharmacy : [facility] Oral (given by mouth) Complet ed 01/05/2022 2 2021 60.0 [facility] SERTRALINE HCL (SERTRALINE HCL), 100MG, TABLET, ORAL, LUPIN PHARMACEU, 500 ea. BOTTLE Cancele d [id number] : 2023 0 Pharmac y Data Transac tion Service Facilit y sildenafil 100 mg oral tablet sildenaf il 100 mg oral tablet Start Date: 03/08/20 Status: Ordered Repeat number: 1 Ordered 2019 No Facilit y Access traZODone 100 mg oral tablet 1 tab(s), Oral, every day at bedtime, PRN sleep, # 90 tab(s), 0 total refill(s ), Maintena [facility], Pharmacy : [facility] Oral (given by mouth) Ordered 2 2021 90.0 [facility] traZODone 50 mg oral tablet 2 tab(s), Oral, every day at bedtime, PRN sleep, # 60 tab(s), 0 total refill(s ), [facility], Pharmacy : [facility] Oral (given by mouth) Complet ed 01/05/2022 2 2021 60.0 [facility] TRAZODONE HCL (trazodone HCl), 50 MG, TABLET, ORAL, [facility]O [facility], 100 ea. BOTTLE Cancele d [id number] : 2023 0 Pharmac y Data Transac tion Service Facilit y ubiquinone 200 mg oral capsule ubiquino ne 200 mg oral capsule Start Date: 04/21/20 Status: Ordered Repeat number: 1 Ordered 2019 No Facilit y Access Vyvanse 50 mg oral capsule 1 cap(s), Oral, every morning, # 20 cap(s), 0 total refill(s ), [facility], Pharmacy : [facility] Oral (given by mouth) Discont inued 01/05/20222021 20.0 [facility] Vyvanse 60 mg oral capsule 1 cap(s), Oral, every morning, # 7 cap(s), 0 total refill(s ), Maintena nce, Slight increase in dose. SM needs 1 week bridge until next appointm ent on , Pharmacy : [facility] Oral (given by mouth) Discont inued 01/05/20222021 7.0 [facility] Allergies, Adverse Reactions, Alerts Combined list of allergies from Department of Defense and Veterans Affairs facilities. It does not include entries that were removed or entered in error. Substance Category Reaction Severity Reaction type Status Date Reported Comments Source No Known Allergies Drug allergy (disorder) active 9 [facility] NO KNOWN ALLERGIES Propensity to adverse reactions to substance Active Unknown Organization Immunizations Combined list of available immunizations from the Department of Defense and Veterans Affairs facilities. 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 Comments Source Influenza, injectable, quadrivalent, preservative free 0 2020 [id number] 150 Seqirus (SEQ) complet ed Influenza , injectabl e, quadrival ent, preservat bibiana free DoD SARS-COV-2 (COVID-19) vaccine, mRNA, spike protein, LNP, preservative free, 30 mcg/0.3mL dose 2 2020 MYA GALDAMEZ N [id number] Pfizer, Inc (PFR) complet ed SARS-COV- 2 (COVID-19 ) vaccine, mRNA, spike protein, LNP, preservat bibiana free, 30 mcg/0.3mL dose DoD SARS-COV-2 (COVID-19) vaccine, mRNA, spike protein, LNP, preservative free, 30 mcg/0.3mL dose 1 2020 KINGSLEY MOON N [id number] 208 Pfizer, Inc (PFR) complet ed SARS-COV- 2 (COVID-19 ) vaccine, mRNA, spike protein, LNP, preservat bibiana free, 30 mcg/0.3mL dose DoD Influenza, injectable, quadrivalent, preservative free 0 2019 [id number] 150 Seqirus (SEQ) complet ed Influenza , injectabl e, quadrival ent, preservat bibiana free DoD influenza, injectable, quadrivalent- pf 2018 [id number] 150 Seqirus complet ed influenza , injectabl e, quadrival ent-pf 06/12/19 Given Ambulat ory Pharmac y Influenza, injectable, quadrivalent, preservative free 0 2018 [id number] 150 Seqirus (SEQ) complet ed Influenza , injectabl e, quadrival ent, preservat bibiana free DoD influenza, injectable, quadrivalent- pf 2017 [id number] [...] ent-pf 07/11/18 Given Ambulat ory Pharmac y Influenza, injectable, quadrivalent, preservative free 0 2017 [id number] 150 Seqirus (SEQ) comple t ed Influenza , injectabl e, quadrival ent, preservat bibiana free DoD Influenza, injectable, Madin Natalya Canine Kidney, quadrivalent with preservative [address] (B) complet ed Influenza , injectabl e, Madin [place] Canine Kidney, quadrival ent with preservat bibiana DoD influenza, seasonal, injectable-pf 2015 [id number] 1a 140 Seqirus complet ed influenza , seasonal, injectabl e-pf 06/22/16 Given Ambulat ory Pharmac y influenza, seasonal, injectable-pf 2015 [id number] 1A 140 Seqirus complet ed influenza , seasonal, injectabl e-pf 06/22/16 Given Ambulat ory Pharmac y Influenza, seasonal, injectable, preservative free 0 2015 [id number] 1A 140 Seqirus (SEQ) complet ed Influenza , seasonal, injectabl e, preservat bibiana free DoD influenza, seasonal, injectable 2014 [id number] 141 Unknown complet ed influenza , seasonal, injectabl e 06/08/15 Given Ambulat ory Pharmac y influenza, seasonal, injectable 2014 [id number] 141 Unknown complet ed influenza , seasonal, injectabl e 06/08/15 Given Ambulat ory Pharmac y Influenza, seasonal, injectable 0 2014 [id number] 141 Unknown (UNK) comple t ed Influenza , seasonal, injectabl e DoD tetanus, diphtheria, acellular pertu is 2013 [id number] sanofi pasteur complet ed tetanus, diphtheri a, acellular pertussis 08/23/14 Given Ambulat ory Pharmac y tetanus-dipht h toxoids (Td) adult/adol 2013 [id number] 09 sanofi pasteur complet ed tetanus-d iphth toxoids (Td) adult/ado l 08/23/14 Given Ambulat ory Pharmac y tetanus, diphtheria, acellular pertu is 2013 zzLef t Arm [id number] 115 sanofi pasteur complet ed tetanus, diphtheri a, acellular pertussis 08/23/14 Given Ambulat ory Pharmac y tetanus-dipht h toxoids (Td) adult/adol 2013 [id number] 09 sanofi pasteur complet ed tetanus-d iphth toxoids (Td) adult/ado l 08/23/14 Given Ambulat ory Pharmac y tetanus and diphtheria toxoids, adsorbed, preservative free, for adult use (2 Lf of tetanus toxoid and 2 Lf of diphtheria toxoid) 0 2013 [id number] 09 Sanofi Pasteur (PMC) complet ed tetanus and diphtheri a toxoids, adsorbed, preservat bibiana free, for adult use (2 Lf of tetanus toxoid and 2 Lf of diphtheri a toxoid) DoD tetanus toxoid, reduced diphtheria toxoid, and acellular pertu is vaccine, adsorbed 1 2013 ALYSSA FOLEY [id number] 115 Sanofi Pasteur (PMC) complet ed tetanus toxoid, reduced diphtheri a toxoid, and acellular pertussis vaccine, adsorbed DoD influenza, injectable, quadrivalent 2013 [id number] 158 GlaxoSmithKli ne complet ed influenza , injectabl e, quadrival ent 07/26/14 Given Ambulat ory Pharmac y influenza, injectable, quadrivalent 2013 [id number] 158 GlaxoSmithKli ne complet ed influenza , injectabl e, quadrival ent 07/26/14 Given Ambulat ory Pharmac y influenza, injectable, quadrivalent, contains preservative 0 2013 [id number] 158 [facility] (SKB) complet ed influenza , injectabl e, quadrival ent, contains preservat bibiana DoD influenza, live, intranasal,qu adrivalent 2012 [id number] 149 sanofi pasteur complet ed influenza , live, intranasa l,quadriv alent 07/17/13 Given Ambulat ory Pharmac y influenza, live, intranasal,qu adrivalent 2012 [id number] 149 sanofi pasteur complet ed influenza , live, intranasa l,quadriv alent 07/17/13 Given Ambulat ory Pharmac y influenza, live, intranasal, quadrivalent 0 2012 [id number] 149 Sanofi Pasteur ([facility]) complet ed influenza , live, intranasa l, quadrival ent 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 complet ed typhoid Vi capsular polysacch aride vac 09/28/12 Given Ambulat ory Pharmac y typhoid Vi capsular polysaccharid e vac 2012 UNK 101 [facility] complet ed typhoid Vi capsular polysacch aride vac 09/28/12 Given Ambulat ory Pharmac y typhoid Vi capsular polysaccharid e vaccine 2 2012 UNK 101 [facility] complet ed typhoid Vi capsular polysacch aride vaccine DoD influenza virus vaccine, live 2011 [id number] Medimmune Inc comple t ed influenza virus vaccine, live 05/31/12 Given Ambulat ory Pharmac y influenza virus vaccine, live 2011 [id number] 111 [employer] comple t ed influenza virus vaccine, live 05/31/12 Given Ambulat ory Pharmac y influenza virus vaccine, live, attenuated, for intranasal use 0 2011 [id number] 111 [employer] Inc. (MED) complet ed influenza virus vaccine, live, attenuate d, for intranasa l use DoD Nigerien Encephalitis IM 2011 [id number] 134 Merck & Company Inc complet ed Nigerien Encephali tis IM 04/15/12 Given Ambulat ory Pharmac y Nigerien Encephalitis IM 2011 [id number] 134 Merck & Company Inc complet ed [place] Encephali tis IM 04/15/12 Given Ambulat ory Pharmac y Nigerien Encephalitis vaccine for intramuscular administratio n 3 2011 [id number] 134 Merck (MSD) complet ed [place] Encephali tis vaccine for intramusc ular administr ation DoD anthrax vaccine 2011 UNK 24 complet ed [...] Given Ambulat ory Pharmac y anthrax vaccine 7 2011 UNK 24 (EBS) complet ed anthrax vaccine DoD yellow fever vaccine 0 2011 UNK 37 [employer] (MIP) complet ed yellow fever vaccine DoD influenza virus vaccine, whole virus 2010 [id number] 16 [employer] comple t ed influenza virus vaccine, whole virus 05/23/11 Given Ambulat ory Pharmac y influenza virus vaccine, whole virus 0 2010 JACOBO QUISPE [id number] 16 [employer] Inc. 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 2009 UNK 101 [employer] complet ed typhoid Vi capsular polysacch aride vac 07/28/10 Given Ambulat ory Pharmac y tuberculin purified protein derivative 2009 [id number] sanofi pasteur complet ed tuberculi n purified protein derivativ e 07/28/10 Given Ambulat ory Pharmac y hepatitis B adult vaccine 2009 UNK 43 GlaxoSmithKli ne complet ed hepatitis B adult vaccine 07/28/10 Given Ambulat ory Pharmac y influenza virus vaccine, live 2009 [id number] 111 [employer] comple t ed influenza virus vaccine, live 07/28/10 Given Ambulat ory Pharmac y influenza virus vaccine, live 2009 [id number] 111 [employer] comple t ed influenza virus vaccine, live 07/28/10 Given Ambulat ory Pharmac y hepatitis B adult vaccine 2009 UNK 43 GlaxoSmithKli ne complet ed hepatitis B adult vaccine 07/28/10 Given Ambulat ory Pharmac y typhoid Vi capsular polysaccharid e vac 2009 UNK 101 [facility] complet ed typhoid Vi capsular polysacch aride vac 07/28/10 Given Ambulat ory Pharmac y hepatitis B vaccine, adult dosage 3 2009 UNK 43 [employer] (SKB) complet ed hepatitis B vaccine, adult dosage DoD typhoid Vi capsular polysaccharid e vaccine 2 2009 UNK 101 [facility] (WAL) complet ed typhoid Vi capsular polysacch aride vaccine DoD influenza virus vaccine, live, attenuated, for intranasal use 1 2009 [id number] 111 [employer], Inc. (MED) complet ed influenza virus vaccine, live, attenuate d, for intranasa l use DoD influenza virus vaccine, live 2008 UNK 111 Unknown complet ed influenza virus vaccine, live 06/24/09 Given Ambulat ory Pharmac y influenza virus vaccine, live 2008 UNK 111 Unknown complet ed influenza virus vaccine, live 06/24/09 Given Ambulat ory Pharmac y influenza virus vaccine, live, attenuated, for intranasal use 0 2008 UNK 111 Unknown (UNK) comple t ed influenza virus vaccine, live, attenuate d, for intranasa l use DoD hepatitis B adult vaccine 2007 UNK 43 GlaxoSmithKli ne complet ed hepatitis B adult vaccine 08/02/08 Given Ambulat ory Pharmac y hepatitis B vaccine, adult dosage 2 2007 UNK 43 [employer]line (SKB) complet ed hepatitis B vaccine, adult dosage DoD influenza virus vaccine, live 2007 UNK 111 [employer] [facility] t ed influenza virus vaccine, live 06/14/08 Given Ambulat ory Pharmac y hepatitis B adult vaccine 2007 UNK 43 GlaxoSmithKli ne complet ed hepatitis B adult vaccine 06/14/08 Given Ambulat ory Pharmac y hepatitis B adult vaccine 2007 UNK 43 GlaxoSmithKli ne complet ed hepatitis B adult vaccine 06/14/08 Given Ambulat ory Pharmac y influenza virus vaccine, live 2007 UNK 111 [employer] comple t ed influenza virus vaccine, live 06/14/08 Given Ambulat ory Pharmac y hepatitis B vaccine, adult dosage 1 2007 UNK 43 [employer] (SKB) complet ed hepatitis B vaccine, adult dosage DoD influenza virus vaccine, live, attenuated, for intranasal use 0 2007 UNK 111 W[employer]era, Inc. (MED) complet ed influenza virus vaccine, live, attenuate d, for intranasa l use DoD anthrax vaccine 2006 UNK 24 [employer] complet ed anthrax vaccine 08/04/07 Given Ambulat ory Pharmac y anthrax vaccine 2006 UNK 24 [employer] complet ed anthrax vaccine 08/04/07 Given Ambulat ory Pharmac y anthrax vaccine 1 2006 UNK 24 [employer] (MIP) complet ed anthrax vaccine DoD influenza virus vaccine,split 2006 UNK 15 [employer] comple t ed influenza virus vaccine,s plit 06/19/07 Given Ambulat ory Pharmac y influenza virus vaccine,split 2006 UNK 15 [employer] comple t ed influenza virus vaccine,s plit 06/19/07 Given Ambulat ory Pharmac y influenza virus vaccine, split virus (incl. purified surface antigen)-reti red CODE 0 2006 UNK 15 [employer] (MED) complet ed influenza virus vaccine, split virus (incl. purified surface antigen)- retired CODE DoD typhoid Vi capsular polysaccharid e vac [id number] sanofi pasteur complet ed typhoid Vi capsular polysacch aride vac 10/07/06 Given Ambulat ory Pharmac y typhoid Vi capsular polysaccharid e vac [id number] 101 sanofi pasteur complet ed typhoid Vi capsular polysacch aride vac 10/07/06 Given Ambulat ory Pharmac y typhoid Vi capsular polysaccharid e vaccine 2 [id number] 101 Sanofi Pasteur ([facility]) complet ed typhoid Vi capsular polysacch aride vaccine DoD influenza virus vaccine, live 2005 [id number] 111 [employer] comple t ed influenza virus vaccine, live 07/29/06 Given Ambulat ory Pharmac y influenza virus vaccine, live 2005 [id number] 111 [employer] comple t ed influenza virus vaccine, live 07/29/06 Given Ambulat ory Pharmac y influenza virus vaccine, live, attenuated, for intranasal use 0 2005 [id number] 111 W[employer] Inc. (MED) complet ed influenza virus vaccine, live, attenuate d, for intranasa l use DoD anthrax vaccine 2005 UNK 24 [employer] complet ed anthrax vaccine 09/21/05 Given Ambulat ory Pharmac y anthrax vaccine 2005 UNKNOWN 24 Unknown complet ed anthrax vaccine 09/21/05 Given Ambulat ory Pharmac y anthrax vaccine 1 2005 UNKNOWN 24 Unknown (UNK) comple t ed anthrax vaccine DoD influenza virus vaccine, unspecified 2004 [id number] 88 Unknown complet ed influenza virus vaccine, unspecifi ed 07/05/05 Given Ambulat ory Pharmac y influenza virus vaccine, unspecified 2004 [id number] 88 Unknown complet ed influenza virus vaccine, unspecifi ed 07/05/05 Given Ambulat ory Pharmac y influenza virus vaccine, unspecified formulation 2 2004 [id number] 88 Unknown (UNK) comple t ed influenza virus vaccine, unspecifi ed formulati on [facility] measles/mumps /rubella virus vaccine 2004 UNK 03 Unknown complet ed measles/m umps/rube lla virus vaccine 01/04/05 Given Ambulat ory Pharmac y Nigerien Encephalitis vaccine, OR 2004 UNKNOWN 39 Unknown complet ed Nigerien Encephali tis vaccine, OR 01/04/05 Given Ambulat ory Pharmac y Nigerien Encephalitis vaccine, OR 2004 UNKNOWN 39 Unknown complet ed Nigerien Encephali tis vaccine, OR 01/04/05 Given Ambulat ory Pharmac y measles/mumps /rubella virus vaccine 2004 UNKNOWN 03 Unknown complet ed measles/m umps/rube lla virus vaccine 01/04/05 Given Ambulat ory Pharmac y measles, mumps and rubella virus vaccine 3 2004 UNKNOWN 03 Unknown (UNK) comple t ed measles, mumps and rubella virus vaccine DoD Nigerien Encephalitis Vaccine OR 3 2004 UNKNOWN 39 Unknown (UNK) comple t ed [place]ien Encephali tis Vaccine SC DoD Nigerien Encephalitis vaccine, OR 2003 UNKNOWN 39 Unknown complet ed Nigerien Encephali tis vaccine, SC 09/05/04 Given Ambulat ory Pharmac y typhoid vaccine, inactivated 2003 UNKNOWN 101 Unknown complet ed typhoid vaccine, inactivat ed 09/05/04 Given Ambulat ory Pharmac y measles and rubella virus vaccine 2003 UNKNOWN 04 Unknown complet ed measles and rubella virus vaccine 09/05/04 Given Ambulat ory Pharmac y measles/mumps /rubella virus vaccine 2003 UNK 03 Unknown complet ed measles/m umps/rube lla virus vaccine 09/05/04 Given Ambulat ory Pharmac y Nigerien Encephalitis vaccine, OR 2003 UNKNOWN 39 Unknown complet ed Nigerien Encephali tis vaccine, OR 09/05/04 Given Ambulat ory Pharmac y measles and rubella virus vaccine 2003 UNKNOWN 04 Unknown complet ed measles and rubella virus vaccine 09/05/04 Given Ambulat ory Pharmac y typhoid vaccine, inactivated 2003 UNKNOWN 101 Unknown complet ed typhoid vaccine, inactivat ed 09/05/04 Given Ambulat ory Pharmac y measles/mumps /rubella virus vaccine 2003 UNKNOWN 03 Unknown complet ed measles/m umps/rube lla virus vaccine 09/05/04 Given Ambulat ory Pharmac y measles, mumps and rubella virus vaccine 1 2003 UNKNOWN 03 Unknown (UNK) comple t ed measles, mumps and rubella virus vaccine [facility] measles and rubella virus vaccine 1 2003 UNKNOWN 04 Unknown (UNK) comple t ed measles and rubella virus vaccine [facility] Nigerien Encephalitis Vaccine OR 1 2003 UNKNOWN 39 Unknown (UNK) comple t ed [place] Encephali tis Vaccine [facility] typhoid vaccine, parenteral, other than acetone-kille d, dried 1 2003 UNKNOWN 41 Unknown (UNK) comple t ed typhoid vaccine, parentera l, other than acetone-k illed, dried [facility] tetanus, diphtheria, acellular pertu is 2003 UNK [...] ertussis 08/18/04 Given Ambulat ory Pharmac y diphtheria, tetanus toxoids and pertu is vaccine 1 2003 UNKNOWN 01 Unknown (UNK) comple t ed diphtheri a, tetanus toxoids and pertussis vaccine DoD influenza virus vaccine, split virus (incl. purified surface antigen)-reti red CODE 1 2003 UNKNOWN 15 Unknown (UNK) comple t ed influenza virus vaccine, split virus (incl. purified surface antigen)- retired CODE DoD tetanus toxoid, reduced diphtheria toxoid, and acellular pertu is vaccine, adsorbed 1 2003 UNK 115 Unknown (UNK) comple t ed tetanus toxoid, reduced diphtheri a toxoid, and acellular pertussis vaccine, adsorbed DoD measles/mumps /rubella virus vaccine 2003 UNKNOWN 03 Unknown complet ed measles/m umps/rube lla virus vaccine 05/26/04 Given Ambulat ory Pharmac y Nigerien Encephalitis vaccine, OR 2003 UNKNOWN 39 Unknown complet ed [place] Encephali tis vaccine, OR 05/26/04 Given Ambulat ory Pharmac y measles/mumps /rubella virus vaccine 2003 UNKNOWN 03 Unknown complet ed measles/m umps/rube lla virus vaccine 05/26/04 Given Ambulat ory Pharmac y Nigerien Encephalitis vaccine, OR 2003 UNKNOWN 39 Unknown complet ed [place] Encephali tis vaccine, OR 05/26/04 Given Ambulat ory Pharmac y measles, mumps and rubella virus vaccine 1 2003 UNKNOWN 03 Unknown (UNK) comple t ed measles, mumps and rubella virus vaccine DoD [place] Encephalitis Vaccine [place] 1 2003 UNKNOWN 39 Unknown (UNK) comple t ed [place] Encephali tis Vaccine [place] DoD anthrax vaccine 2003 [id number] Unknown complet ed anthrax vaccine 01/12/04 Given Ambulat ory Pharmac y poliovirus vaccine, live, oral 2003 [id number] 02 Unknown complet ed polioviru s vaccine, live, oral 01/12/04 Given Ambulat ory Pharmac y anthrax vaccine 2003 [id number] 24 Unknown complet ed anthrax vaccine 01/12/04 Given Ambulat ory Pharmac y poliovirus vaccine, live, oral 2003 [id number] 02 Unknown complet ed polioviru s vaccine, live, oral 01/12/04 Given Ambulat ory Pharmac y trivalent poliovirus vaccine, live, oral 5 2003 [id number] 02 Other (OTH) complet ed trivalent polioviru s vaccine, live, oral DoD anthrax vaccine 5 2003 [id number] Other (OTH) complet ed anthrax vaccine DoD hepatitis A adult vaccine 2002 [id number] [...] Ambulat ory Pharmac y measles virus vaccine 2 2002 [id number] Merck (MSD) complet ed measles virus vaccine DoD hepatitis A vaccine, adult dosage 2 2002 [id number] Merck (MSD) complet ed hepatitis A vaccine, adult dosage DoD poliovirus vaccine, live, oral 2002 [id number] 02 Unknown complet ed polioviru s vaccine, live, oral 08/03/03 Given Ambulat ory Pharmac y diphtheria/te tanus toxoids/pertu is 2002 [id number] [employer] complet ed diphtheri a/tetanus toxoids/p ertussis 08/03/03 Given Ambulat ory Pharmac y anthrax vaccine 2002 [id number] Unknown complet ed anthrax vaccine 08/03/03 Given Ambulat ory Pharmac y influenza virus vaccine,split 2002 [id number] Novartis Pharmaceut[employer] ls complet ed influenza virus vaccine,s plit 08/03/03 Given Ambulat ory Pharmac y influenza virus vaccine,split 2002 [id number] Novartis Pharmaceutica ls complet ed influenza virus vaccine,s plit 08/03/03 Given Ambulat ory Pharmac y diphtheria/te tanus toxoids/pertu is 2002 [id number] 01 Novartis Pharmaceutica ls complet ed diphtheri a/tetanus toxoids/p ertussis 08/03/03 Given Ambulat ory Pharmac y anthrax vaccine 2002 [id number] 24 Unknown complet ed anthrax vaccine 08/03/03 Given Ambulat ory Pharmac y poliovirus vaccine, live, oral 2002 [id number] Unknown complet ed polioviru s vaccine, live, oral 08/03/03 Given Ambulat ory Pharmac y diphtheria, tetanus toxoids and pertu is vaccine 0 2002 [id number] Davin (EVN) complet ed diphtheri a, tetanus toxoids and pertussis vaccine DoD trivalent poliovirus vaccine, live, oral 4 2002 [id number] 02 Other (OTH) complet ed trivalent polioviru s vaccine, live, oral DoD influenza virus vaccine, split virus (incl. purified surface antigen)-reti red CODE 0 2002 [id number] 15 Davin (EVN) complet ed influenza virus vaccine, split virus (incl. purified surface antigen)- retired CODE DoD anthrax vaccine 4 2002 [id number] 24 Other (OTH) complet ed anthrax vaccine DoD mumps virus vaccine 2002 [id number] 07 [employer] complet ed mumps virus vaccine 09/30/02 Given Ambulat ory Pharmac y vaccinia (smallpox) vaccine 2002 [id number] [employer] complet ed vaccinia (smallpox ) vaccine 09/30/02 Given Ambulat ory Pharmac y mumps virus vaccine 2002 [id number] 07 [employer] complet ed mumps virus vaccine 09/30/02 Given Ambulat ory Pharmac y vaccinia (smallpox) vaccine 2002 [id number] [facility] complet ed vaccinia (smallpox ) vaccine 09/30/02 Given Ambulat ory Pharmac y mumps virus vaccine 1 2002 [id number] 07 [employer] (WAL) complet ed mumps virus vaccine DoD vaccinia (smallpox) vaccine 1 2002 [id number] 75 [facility] ([facility] complet ed vaccinia (smallpox ) vaccine DoD hepatitis A adult vaccine 2002 UNKNOWN 52 Unknown complet ed hepatitis A adult vaccine 09/21/02 Given Ambulat ory Pharmac y hepatitis A adult vaccine 2002 UNKNOWN 52 Unknown complet ed hepatitis A adult vaccine 09/21/02 Given Ambulat ory Pharmac y hepatitis A vaccine, adult dosage 2 2002 UNKNOWN 52 Unknown (UNK) comple t ed hepatitis A vaccine, adult dosage DoD measles and rubella virus vaccine 2001 UNKNOWN 04 Unknown complet ed measles and rubella virus vaccine 09/04/02 Given Ambulat ory Pharmac y anthrax vaccine 2001 [id number] 24 Unknown complet ed anthrax vaccine 09/04/02 Given Ambulat ory Pharmac y poliovirus vaccine, live, oral 2001 [id number] 02 Unknown complet ed polioviru s vaccine, live, oral 09/04/02 Given Ambulat ory Pharmac y typhoid vaccine, inactivated 2001 UNKNOWN 101 Unknown complet ed typhoid vaccine, inactivat ed 09/04/02 Given Ambulat ory Pharmac y anthrax vaccine 2001 [id number] 24 Unknown complet ed anthrax vaccine 09/04/02 Given Ambulat ory Pharmac y measles and rubella virus vaccine 2001 UNKNOWN 04 Unknown complet ed measles and rubella virus vaccine 09/04/02 Given Ambulat ory Pharmac y poliovirus vaccine, live, oral 2001 [id number] 02 Unknown complet ed polioviru s vaccine, live, oral 09/04/02 Given Ambulat ory Pharmac y typhoid vaccine, inactivated 2001 UNKNOWN 101 Unknown complet ed typhoid vaccine, inactivat ed 09/04/02 Given Ambulat ory Pharmac y trivalent poliovirus vaccine, live, oral 3 2001 [id number] 02 Other (OTH) complet ed trivalent polioviru s vaccine, live, oral DoD measles and rubella virus vaccine 1 2001 UNKNOWN 04 Unknown (UNK) comple t ed measles and rubella virus vaccine DoD anthrax vaccine 3 2001 [id number] 24 Other (OTH) complet ed anthrax vaccine DoD typhoid vaccine, parenteral, other than acetone-kille d, dried 1 2001 UNKNOWN 41 Unknown (UNK) comple t ed typhoid vaccine, parentera l, other than acetone-k illed, dried DoD anthrax vaccine 2001 [id number] 24 Unknown complet ed anthrax vaccine 08/21/02 Given Ambulat ory Pharmac y poliovirus vaccine, live, oral 2001 [id number] 02 Unknown complet ed polioviru s vaccine, live, oral 08/21/02 Given Ambulat ory Pharmac y anthrax vaccine 2001 [id number] 24 Unknown complet ed anthrax vaccine 08/21/02 Given Ambulat ory Pharmac y poliovirus vaccine, live, oral 2001 [id number] 02 Unknown complet ed polioviru s vaccine, live, oral 08/21/02 Given Ambulat ory Pharmac y trivalent poliovirus vaccine, live, oral 2 2001 [id number] 02 Other (OTH) complet ed trivalent polioviru s vaccine, live, oral DoD anthrax vaccine 2 2001 [id number] 24 Other (OTH) complet ed anthrax vaccine DoD poliovirus vaccine, live, oral 2001 [id number] 02 Unknown complet ed polioviru s vaccine, live, oral 08/05/02 Given Ambulat ory Pharmac y anthrax vaccine 2001 [id number] 24 Unknown complet ed anthrax vaccine 08/05/02 Given Ambulat ory Pharmac y anthrax vaccine 2001 [id number] 24 Unknown complet ed anthrax vaccine 08/05/02 Given Ambulat ory Pharmac y poliovirus vaccine, live, oral 2001 [id number] 02 Unknown complet ed polioviru s vaccine, live, oral 08/05/02 Given Ambulat ory Pharmac y trivalent poliovirus vaccine, live, oral 1 2001 [id number] 02 Other (OTH) complet ed trivalent polioviru s vaccine, live, oral DoD anthrax vaccine 1 2001 [id number] 24 Other (OTH) complet ed anthrax vaccine DoD influenza virus vaccine,split 2001 UNKNOWN 15 Unknown [...] plit 06/21/02 Given Ambulat ory Pharmac y diphtheria, tetanus toxoids and pertu is vaccine 0 2001 UNKNOWN 01 Unknown (UNK) comple t ed diphtheri a, tetanus toxoids and pertussis vaccine DoD influenza virus vaccine, split virus (incl. purified surface antigen)-reti red CODE 0 2001 UNKNOWN 15 Unknown (UNK) comple t ed influenza virus vaccine, split virus (incl. purified surface antigen)- retired CODE DoD measles virus vaccine 2001 UNKNOWN 05 Unknown [...] l 02/05/02 Given Ambulat ory Pharmac y diphtheria, tetanus toxoids and pertu is vaccine 1 2001 UNKNOWN 01 Unknown (UNK) comple t ed diphtheri a, tetanus toxoids and pertussis vaccine DoD measles, mumps and rubella virus vaccine 0 2001 UNKNOWN 03 Unknown (UNK) comple t ed measles, mumps and rubella virus vaccine DoD measles virus vaccine 1 2001 UNKNOWN 05 Unknown (UNK) comple t ed measles virus vaccine DoD tetanus and diphtheria toxoids, adsorbed, preservative free, for adult use (2 Lf of tetanus toxoid and 2 Lf of diphtheria toxoid) 0 2001 UNKNOWN 09 Unknown (UNK) comple t ed tetanus and diphtheri a toxoids, adsorbed, preservat bibiana free, for adult use (2 Lf of tetanus toxoid and 2 Lf of diphtheri a toxoid) DoD poliovirus vaccine, inactivated 1 2001 UNKNOWN 10 Unknown (UNK) comple t ed polioviru s vaccine, inactivat ed DoD yellow fever vaccine 0 2001 UNKNOWN 37 Unknown (UNK) comple t ed yellow fever vaccine DoD hepatitis A vaccine, adult dosage 1 2001 UNKNOWN 52 Unknown (UNK) comple t ed hepatitis A vaccine, adult dosage DoD meningococcal polysaccharid e (MPSV4) 2001 UNKNOWN 32 [...] vaccine 12/30/01 Given Ambulat ory Pharmac y influenza virus vaccine, split virus (incl. purified surface antigen)-reti red CODE 0 2001 UNKNOWN 15 Unknown (UNK) comple t ed influenza virus vaccine, split virus (incl. purified surface antigen)- retired CODE DoD meningococcal polysaccharid e vaccine (MPSV4) 0 2001 UNKNOWN 32 Unknown (UNK) comple t ed meningoco ccal polysacch aride vaccine (MPSV4) DoD diphtheria, tetanus toxoids and pertu is vaccine 0 2001 UNKNOWN 01 Unknown (UNK) comple t ed diphtheri a, tetanus toxoids and pertussis vaccine DoD measles, mumps and rubella virus vaccine 1 2001 UNKNOWN 03 Unknown (UNK) comple t ed measles, mumps and rubella virus vaccine DoD Encounters Combined list of: 1) Encounters from Department of Veterans Affairs facilities going backup to the last 18 months, not all VA inpatient encounters are included; 2) Encounters from the Department of Defense facilities going backup to 280 months. Location Location Details Encounter Type Encounter Number Reason For Visit Attending Provider ADM Date DC Date Status [place]position Source [place] [place] OUTPATIENT [id number] PETRONA FARRIS 08/18 Released w/o Limitations [place] [employer] [place] Theater Facility OUTPATIENT [id number] 02/01 Released w/o Limitations Theater Facilit [facility] [employer] [place]) OUTPATIENT [id number] congest ion/sin us/vomi KACY Perdue 11/22 [facility]ased w/o Limitations [facility] [place] [facility] [employer] [place] TELE CONSULT [id number] NEEDS APPOINT MENT CARMINA REED 11/22 [facility] [place] [facility] [employer] [place]) [place] [id number] SMOKING CESSATI ON YAZAN CORNEJO 12/09 Released w/o Limitations [facility] [place] [facility] [employer] [place] [id number] re-enli stment paperwo YAZAN Gilmore 01/10 Released w/o Limitations [facility] [place] [facility] [place]) [place] [id number] Signatu re for school/ paperwo YAZAN [place] 04/12 Released w/o Limitations [facility] [place] [facility] [place] [facility] OUTPATIENT [id number] DENISE DIEZ Quyen 07/28 Released w/o Limitations [facility] [place] [facility] [place]) [place]PATIENT [id number] H/C CHRISTEL Sellers S. 11/08 Released w/o Limitations [facility] [employer] [place] [id number] vas class MOISES SARAVIA 11/15 Released w/o Limitations [place] [id number] LALI Negro 12/20 Sick at Home/Quarter s [place] [facility] [place] OUT[place] [id number] 3WK VAS F/U LALI LLAMAS 01/10 Released w/o Limitations [place] [place] [facility] OUTPATIENT [id number] Notes Entered by: Robert VERA 01 Jul 2013 0721 ------- ------- ------- ------- -- ANNUAL AUDIOGR AM EILEEN VERA 07/01 Released w/o Limitations [place] [place] [facility] [facility] D Optometry ) OUTPATIENT [id number] Notes Entered by: MATT MARKS 23 Aug 2014 0838 ------- ------- ------- ------- -- RENNY ARSHAD 08/23 Released w/o Limitations [facility] Optomet ry) [facility] D HC Program) OUTPATIENT [id number] Notes Entered by: KEM LITTLE 23 Aug 2014 0915 ------- ------- ------- ------- -- ANNUAL KEM LITTLE 08/23 Released w/o Limitations [facility] Program ) [facility] D [facility] Tm 1) OUTPATIENT [id number] Notes Entered by: SATISH GALLO 23 Aug 2014 0933 ------- ------- ------- ------- -- ALYSSA Leonardo 08/23 Released w/o Limitations [facility] Tm 1) [facility] Tm 1) OUTPATIENT [id number] Notes Entered by: EM BUNCH 25 Aug 2014 1117 ------- ------- ------- ------- -- MANUEL HOOD 08/25 Released w/o Limitations [facility] Tm 1) [facility] Tm 1) OUTPATIENT [id number] Notes Entered by: SATISH GALLO 21 Sep 2014 1411 ------- ------- ------- ------- -- LLQ pain MANUEL ZAPATA 09/21 Released with Work/Duty Limitations [facility] Med [facility] Tm 1) [facility] D [facility] Tm 1) OUTPATIENT [id number] F/U LLQ PX MANUEL ZAPATA 09/29 Released with Work/Duty Limitations [facility] Tm 1) [facility](SD General Surg) OUTPATIENT [id number] Groin (inguin al) pain left side COLEMAN SHANE 09/30 Released w/o Limitations [facility](S D General Surg) [facility](SD General Surg) OUTPATIENT [id number] F/U GROIN (INGUIN IAL) PAIN LEFT SIDE BARBICK, COLEMAN Jude 10/28 Released w/o Limitations [facility](S D General Surg) [place] [place] [facility] OUTPATIENT [id number] GROIN PAIN COLEMAN SANDRA Christopher 12/14 Released w/o Limitations [place] [facility] [facility] [facility](MCR D Physical Therapy) OUTPATIENT [id number] MANUEL LYNNE 01/05 Released w/o Limitations [facility](M CRD Physica l Therapy ) [facility](MCR D Physical Therapy) OUTPATIENT [id number] VICTORIA CAIN 01/12 Released w/o Limitations [facility](M CRD Physica l Therapy ) [facility](MCR D Fam Med [facility] Tm 1) OUTPATIENT [id number] Notes Entered by: IRENE BRITO 08 Jun 2015 1233 ------- ------- ------- ------- -- FLU IMMUNIZ ATION FITCH, TORRIN W 06/08 Released w/o Limitations [facility](M CRD Fam Med [facility] Tm 1) [facility](MCR D Fam Med [facility] Tm 1) OUTPATIENT [id number] Notes Entered by: ELIEZER MENDEZ 04 Oct 2015 1400 ------- ------- ------- ------- -- JAYY SABA 10/04 Released w/o Limitations [facility](M CRD Fam Med [facility] Tm 1) [facility](MCR D Optometry ) OUTPATIENT [id number] SAHIL Oro 10/17 Released w/o Limitations [facility](M CRD Optomet ry) [facility](MCR D Imms [facility] Tm 1) OUTPATIENT [id number] FLU IMMUNIZ ATION FITCH, TORRIN W 06/28 Released w/o Limitations [facility](M CRD Imms [facility] Tm 1) [facility](MCR D Med Readiness Cln) OUTPATIENT [id number] Notes Entered by: ACE WILSON 26 Nov 2016 1320 ------- ------- ------- ------- -- JAYY SABA 11/26 Released w/o Limitations [facility](M CRD Med Readine ss Cln) [facility] D HC Program) OUTPATIENT [id number] Notes Entered by: MARCO ANTONIO OLEA 05 Dec 2016 1418 ------- ------- ------- ------- -- MARCO ANTONIO PAUL 12/05 Released w/o Limitations [facility]( CRD HC Program ) [facility] D HC Program) OUTPATIENT [id number] Notes Entered by: MARCO ANTONIO OLEA 14 Dec 2016 0916 ------- ------- ------- ------- -- F/MARCO ANTONIO MUÑOZ 12/14 Released w/o Limitations [facility]( CRD HC Program ) [facility] D HC Program) OUTPATIENT [id number] audio LEONARD Jordan 12/27 Released w/o Limitations [facility]( CRD HC Program ) [facility] Mainside Team 3) OUTPATIENT [id number] 10/19 HQ Tobacco Cessati on JESS RDZ Christopher 12/03 Released w/o Limitations [facility]( [facility] Maind e Team 3) [facility]( aring Conserv-B 65) OUTPATIENT [id number] Notes Entered by: JESS JOSEPH 15 Jan 2018 1254 ------- ------- ------- ------- -- ANNUAL JESS JOSEPH 01/15 Released w/o Limitations [facility]( [facility] Conserv -B65) [facility] Mainside Team 3) TELE CONSULT [id number] Notes Entered by: NIKKO MCKINNON 16 Oct 2018 1057 ------- ------- ------- ------- -- EPHA MARTHA Wasserman 10/16 Other Not Elsewhere Classified [facility] 65) OUTPATIENT [id number] Notes Entered by: Alex BRITO 13 Jan 2019 0949 ------- ------- ------- ------- -- MALIA Erazo 01/13 Released w/o Limitations [facility]( [facility] Conserv -B65) [facility] 65) OUTPATIENT [id number] Notes Entered by: LUCIA PEARL 17 Feb 2020 1254 ------- ------- ------- ------- -- LUCIA Holloway 02/16 Released w/o Limitations [facility]( [facility] Conserv -B65) [facility] 65) OUTPATIENT [id number] Notes Entered by: LUCIA PEARL 18 Feb 2020 0756 ------- ------- ------- ------- -- F/u LUCIA PEARL 02/17 Released w/o Limitations [facility]( [facility] Conserv -B65) [facility] Mainside Team 3) OUTPATIENT [id number] Chronic headach es NITA LANGE 03/08 Released w/o Limitations [facility]( [facility] Maind e Team 3) [facility] Mainside Team 3) TELE CONSULT [id number] NITA LANGE 03/14 [facility]( [facility] Maind e Team 3) [facility](10 ROSARIO) TELE CONSULT [id number] NITA LANGEElvaBRIAN 03/16 [facility]( ROSARIO) [facility] Mainside Team 3) TELE CONSULT [id number] Notes Entered by: PATRICE MARTINEZ 12 May 2020 1141 ------- ------- ------- ------- -- Med anupam ECHEVERRIA BRITNI YAZAN 05/12 [facility]( [facility] Maind e Team 3) [facility]) OUTPATIENT [id number] Notes Entered by: RODOLFO ALEGRIA 01 Aug 2020 0915 ------- ------- ------- ------- -- STI Testing SYM RODOLFO ALEGRIA 08/01 Released w/o Limitations [facility]( [facility]) [facility]) TELE CONSULT [id number] Notes Entered by: Christopher ROSE 10 Aug 2020 1101 ------- ------- ------- ------- -- STI Lab Results UTE MCGEE SHREYAS 08/10 Released to Self Care [facility]( [facility]) [facility](Di vision Psychiatr y Dept) OUTPATIENT [id number] formerl y seen by ACE Downing 08/23 Released with Work/Duty Limitations [facility]( Divisio n Psychia try Dept) [facility](Di vision Psychiatr y Dept) OUTPATIENT [id number] f/u appt ACE TOMLINSON 09/20 Released with Work/Duty Limitations [facility]( Divisio n Psychia try Dept) [facility] Mainside Team 3) TELE CONSULT [id number] Notes Entered by: Alex TEE 06 Oct 2020 1308 ------- ------- ------- ------- -- ePHA Review JAYSHREE BEARD 10/06 [facility]( [facility] e Team 3) [facility](Di vision Psychiatr y Dept) TELE CONSULT [id number] Notes Entered by: JOSEPH VERGARA 10 Oct 2020 1100 ------- ------- ------- ------- -- JAE 12ACE RAMOS 10/10 [facility]( Divisio n Psychia try Dept) [facility] Mainside Team 3) TELE CONSULT [id number] Notes Entered by: JAYSHREE BEARD 18 Oct 2020 0914 ------- ------- ------- ------- -- Smoking cessati on JAYSHREE BEARD 10/18 [facility]( [facility] e Team 3) [facility]( C TBI Clinic) TELE CONSULT [id number] Notes Entered by: ADELAIDA WADE 18 Oct 2020 1508 ------- ------- ------- ------- -- TBI Clinic/ Intrepi d FRANCISCO Mike 10/18 Other Not Elsewhere Classified [facility]( [facility] TBI Clinic) [facility] Mainside Team 3) TELE CONSULT [id number] Notes Entered by: JAYSHREE BEARD 18 Nov 2020 0811 ------- ------- ------- ------- -- Tobacco Cessati on Follow up JAYSHREE BEARD 11/18 [facility]( [facility] e Team 3) [facility](De rmatology Clinic) OUTPATIENT [id number] Localiz ed rogerio tayler, mass and lump, head CONTESTABL CHRISTIE White 12/05 Released w/o Limitations [facility]( Dermato logy Clinic) [facility] Mainside Team 3) TELE CONSULT [id number] Notes Entered by: JAYSHREE BEARD 08 Dec 2020 0807 ------- ------- ------- ------- -- 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 JAYSHREE Barrientos 12/08 [facility]( [facility] e Team 3) [facility] Mainside Team 3) TELE CONSULT [id number] Notes Entered by: JAYSHREE BEARD 23 Dec 2020 1355 ------- ------- ------- ------- -- Referre d back from Rehab center JAYSHREE BEARD 12/23 [facility]( [facility] e Team 3) [facility] Mainside Team 3) TELE CONSULT [id number] Notes Entered by: JAYSHREE BEARD 18 Jan 2021 0802 ------- ------- ------- ------- -- Consult JAYSHREE BEARD 01/18 [facility]( [facility] e Team 3) [facility] Mainside Team 3) TELE CONSULT [id number] Notes Entered by: Alex TEE 30 Mar 2021 1319 ------- ------- ------- ------- -- Medicat ion Refill KISHA JAYSHREE MANUEL 03/30 [facility]( [facility] Mainsid e Team 3) [facility]( neral Surgery Clinic) OUTPATIENT [id number] Unspeci fied hemorrh oids ROSELYN DURON 04/11 Released w/o Limitations [facility]( General Surgery Clinic) [facility] [id number] Pilonid al cyst without abscess CONTESTABL E, CHRISTIE MELLO 05/29 Released w/o Limitations [facility]( Dermato logy Clinic) [facility] OUTPAT[facility] [id number] INITIAL LASER CONTESTABL E, CHRISTIE MELLO 05/30 Released w/o Limitations [facility]( Dermato logy Clinic) [facility](Ge neral Surgery Clinic) OUTPATIENT [id number] f/u,H&P update MURALI ZAVALA 05/31 Released w/o Limitations [facility]( General Surgery Clinic) [facility]([place] VID19 Scrn [facility]) OUTPATIENT [id number] [place] [address] ARC PRE OP FABIANBRYCETATI ANDERSON RAIZ 06/03 Released w/o Limitations [facility]( COVID19 Scrn Clinic) [facility](24 th MEU BAS) OUTPATIENT [id number] Notes Entered by: TRACY MENDOZA 14 Jun 2021 0936 ------- ------- ------- ------- -- COVID VACCINE 050 WILFRED(ID C)JESS 06/14 Released w/o Limitations [facility]( MEU BAS) [facility](24 MEU BAS) OUTPATIENT [id number] Notes Entered by: ISSAC SOARES 06 Jul 2021 0739 ------- ------- ------- ------- -- COVID VACCINE 001 JESS MARIN 07/06 Released w/o Limitations [facility]( 24th [facility] BAS) [facility] Mainside Team 3) TELE CONSULT [id number] Notes Entered by: Jude NIÑO HER ANHKHOI 10 Aug 2021 0815 ------- ------- ------- ------- -- Flu VaccJAYSHREE Jarvis 08/10 [facility]( [facility] Team 3) TELE CONSULT [id number] Notes Entered by: Alex TEE 10 Aug 2021 0836 ------- ------- ------- ------- -- ePHA Review / Influen za Vaccine JAYSHREE BEARD 08/10 [facility]( [facility] Procedures Combined list of: 1) Procedures from Department of Veterans Affairs facilities going back up to thelast 18 months, not all VA non-surgical procedures are included; 2) All procedures from the Department of Defense facilities. Procedure Procedure Type Code Date Perfomer Comments Sourc e No data available for this section Amb[facility] Pharmacy PATIENT EDUCATION, NOT OTHERWISE CLASSIFIED, NON-PHYSICIAN PROVIDER, GROUP, PER SESSION 2010 DoD PATIENT EDUCATION, NOT OTHERWISE CLASSIFIED, NON-PHYSICIAN PROVIDER, GROUP, PER SESSION 2009 [facility] COLLECTION OF VENOUS BLOOD BY VENIPUNCTURE 2009 [facility] TELE ASSESS & MGT SRV PROV QUAL NONPHYS HLTH CARE PRO TO EST PAT,PARENT,GUARD NOT ORIG REL ASSESS & MGT SRV PROV W/IN PREV 7 DAYS NOR LEAD ASSESS & MGT SRV/PX W/IN NXT 24 HR/SOON APT;5-10 MIN MED DIS 2008 DoD UNCLASSIFIED DRUGS 2008 DoD THERAPEUTIC, PROPHYLACTIC, OR DIAGNOSTIC INJECTION (SPECIFY SUBSTANCE OR DRUG); SUBCUTANEOUS OR INTRAMUSCULAR 2016 [facility] TYMPANOMETRY (IMPEDANCE TESTING) 2016 [facility] AUDIOMETRIC TESTING OF GROUPS 2016 [facility] AUDIOMETRIC TESTING OF GROUPS 2016 [facility] INFLUENZA VIRUS VACCINE, TRIVALENT (IIV3), SPLIT VIRUS, PRESERVATIVE FREE, 0.5 ML DOSAGE, FOR INTRAMUSCULAR USE 2015 [facility] DETERMINATION OF REFRACTIVE STATE 2015 [facility] INFLUENZA VIRUS VACCINE, QUADRIVALENT, LIVE (LAIV4), FOR INTRANASAL USE 2014 [facility] THERAPEUTIC PROCEDURE, 1 OR MORE AREAS, EACH 15 MINUTES; THERAPEUTIC EXERCISES TO DEVELOP STRENGTH AND ENDURANCE, RANGE OF MOTION AND FLEXIBILITY 2014 [facility] THERAPEUTIC ACTIVITIES, DIRECT (ONE-ON-ONE) PATIENT CONTACT (USE OF DYNAMIC ACTIVITIES TO IMPROVE FUNCTIONAL PERFORMANCE), EACH 15 MINUTES 2014 [facility] IMMUNIZATION ADMINISTRATION (INCLUDES PERCUTANEOUS, INTRADERMAL, SUBCUTANEOUS, OR INTRAMUSCULAR INJECTIONS); 1 VACCINE (SINGLE OR COMBINATION VACCINE/TOXOID) 2013 [facility] SCREENING TEST, PURE TONE, AIR ONLY 2013 [facility] VIS FUNCT SCREEN,AUTOMAT/SEMI -AUTOMAT BILAT QUANT DETERM VISUAL ACUITY,OCULAR ALIGN,COLOR VISION,PSEUDOISOCHR OMAT PLATES,& FIELD VIS (MAY INC ALL/SOME SCRN DETERM FOR CONTRAST SENSITIV,VIS UND GLARE) 2013 [facility] PURE TONE AUDIOMETRY (THRESHOLD); AIR ONLY 2001 [facility] INFLUENZA IMMUNIZATION ADMINISTERED OR PREVIOUSLY RECEIVED (HIV), (P-ESRD) 2020 DoD PSYCHOTHERAPY, 30 MINUTES WITH PATIENT WHEN PERFORMED WITH AN EVALUATION AND MANAGEMENT SERVICE (LIST SEPARATELY IN ADDITION TO THE CODE FOR PRIMARY PROCEDURE) 2020 DoD IMMUNIZATION ADM,INTRAMUSCULAR INJ,SEVERE AC RESPIRATORY SYNDROME CORONAVIR 2 (SARSCOV-2) (CORONAVIR DIS [COVID-19]) VACC,MRNALNP,SPIKE PROT,PRESRV FREE,30 MCG/0.3ML DOS,DILUENT RECONSTITUT;2ND DOSE 2020 DoD PSYCHOTHERAPY, 30 MINUTES WITH PATIENT WHEN PERFORMED WITH AN EVALUATION AND MANAGEMENT SERVICE (LIST SEPARATELY IN ADDITION TO THE CODE FOR PRIMARY PROCEDURE) 2020 DoD IMMUNIZATION ADM,INTRAMUSCULAR INJ,SEVERE AC RESPIRATORY SYNDROME CORONAVIR 2 (SARSCOV-2) (CORONAVIR DIS [COVID-19]) VACC,MRNALNP,SPIKE PROT,PRESRV FREE,30 MCG/0.3ML DOS,DILUENT RECONSTITUT;1ST DOSE 2020 [facility] UNLISTED SPECIAL SERVICE, PROCEDURE OR REPORT 2020 DoD PSYCHOTHERAPY, 30 MINUTES WITH PATIENT WHEN PERFORMED WITH AN EVALUATION AND MANAGEMENT SERVICE (LIST SEPARATELY IN ADDITION TO THE CODE FOR PRIMARY PROCEDURE) 2020 DoD DESTRUCTION (EG, LASER SURGERY, ELECTROSURGERY, CRYOSURGERY, CHEMOSURGERY, SURGICAL CURETTEMENT), OF BENIGN LESIONS OTHER THAN SKIN TAGS OR CUTANEOUS VASCULAR PROLIFERATIVE LESIONS; UP TO 14 LESIONS 2020 DoD PSYCHOTHERAPY, 30 MINUTES WITH PATIENT WHEN PERFORMED WITH AN EVALUATION AND MANAGEMENT SERVICE (LIST SEPARATELY IN ADDITION TO THE CODE FOR PRIMARY PROCEDURE) 2020 DoD PSYCHOTHERAPY, 30 MINUTES WITH PATIENT WHEN PERFORMED WITH AN EVALUATION AND MANAGEMENT SERVICE (LIST SEPARATELY IN ADDITION TO THE CODE FOR PRIMARY PROCEDURE) 2020 DoD PSYCHOTHERAPY, 30 MINUTES WITH PATIENT WHEN PERFORMED WITH AN EVALUATION AND MANAGEMENT SERVICE (LIST SEPARATELY IN ADDITION TO THE CODE FOR PRIMARY PROCEDURE) 2020 DoD PSYCHOTHERAPY, 30 MINUTES WITH PATIENT WHEN PERFORMED WITH AN EVALUATION AND MANAGEMENT SERVICE (LIST SEPARATELY IN ADDITION TO THE CODE FOR PRIMARY PROCEDURE) 2020 DoD PSYCHOTHERAPY, 30 MINUTES WITH PATIENT 2019 DoD PSYCHIATRIC DIAGNOSTIC EVALUATION WITH MEDICAL SERVICES 2019 DoD PSYCHOTHERAPY, 45 MINUTES WITH PATIENT 2019 DoD TIMEOUT TO VERIFY CORRECT PATIENT, CORRECT SITE, AND CORRECT PROCEDURE, DOCUMENTED (PATH) 2019 DoD PSYCHOTHERAPY, 60 MINUTES WITH PATIENT 2019 DoD PSYCHIATRIC DIAGNOSTIC EVALUATION 2019 DoD PATIENT EDUCATION, NOT OTHERWISE CLASSIFIED, NON-PHYSICIAN PROVIDER, INDIVIDUAL, PER SESSION 2019 DoD PATIENT EDUCATION, NOT OTHERWISE CLASSIFIED, NON-PHYSICIAN PROVIDER, INDIVIDUAL, PER SESSION 2019 DoD PATIENT EDUCATION, NOT OTHERWISE CLASSIFIED, NON-PHYSICIAN PROVIDER, INDIVIDUAL, PER SESSION 2018 DoD PATIENT EDUCATION, NOT OTHERWISE CLASSIFIED, NON-PHYSICIAN PROVIDER, GROUP, PER SESSION 2017 DoD Patient education, not otherwise cla ified, non-physician provider, individual, per se ion 2018 MALIA GRIGGS [facility] Threshold Audiogram (Pure Tone) Automated Threshold Audiogram (Pure Tone) Automated 8T 2018 MALIA GRIGGS [facility] Threshold Audiogram (Pure Tone) Automated Threshold Audiogram (Pure Tone) Automated 0208T 2017 JESS JOESPH [facility] Patient education, not otherwise cla ified, non-physician provider, group, per se ion 2017 JESS JOSEPH [facility] Tympanometry Tympanometry 71360 2016 LEONARD NEW [facility] Comprehensive Audiometry Comprehensive Audiometry 06975 2016 LEONARD NEW [facility] Audiometry Group Testing Audiometry Group Testing 29821 2016 MARCO ANTONIO MONROE [facility] Patient education, not otherwise cla ified, non-physician provider, group, per se ion 2016 MARCO ANTONIO MONROE [facility] Patient education, not otherwise cla ified, non-physician provider, group, per se ion 2016 MARCO ANTONIO MONROE [facility] Audiometry Group Testing Audiometry Group Testing 62684 2016 MARCO ANTONIO MONROE Immunization Administration One Vaccine Immunization Administration One Vaccine 09746 2015 FAIZA BARON [facility] Influenza Split Virus Vacc Age 3+ Years IM Preservative Free 2015 FAIZA BARON [facility] Determination Of Refractive State Determination Of Refractive State 97443 2015 SAHIL SAHU [facility] Spectacles Services Fitting Monofocals (Not For Aphakia) Spectacles Services Fitting Monofocals (Not For Aphakia) 56978 2015 SAHIL SAHU Ophthalmological Prior Patient Start Comprehensive Care Ophthalmological Prior Patient Start Comprehensive Care [id number] 2015 SAHIL SAHU Immunization Admin By Intranasal / Oral Route One Vaccine Immunization Admin By Intranasal / Oral Route One Vaccine 94724 2014 JAYY CRESPO [facility] Physical Therapy: ___ Se ion Segments, 15 Minutes Each Physical Therapy: ___ Session Segments, 15 Minutes Each [id number] 2014 VICTORIA CAIN [facility] PT A e ment Kinetic Training Additional 15 Minutes PT Assessment Kinetic Training Additional 15 Minutes 66638 2014 MANUEL LYNNE [facility] Physical Medicine Physical Therapy Evaluation Physical Medicine Physical Therapy Evaluation 19684 2014 MANUEL LYNNE [facility] Physical Medicine Physical Therapy Evaluation Physical Medicine Physical Therapy Evaluation 79962 2014 COLEMAN SANDRA [facility] Tdap Vaccine Tdap Vaccine 29321 2013 ALYSSA FOLEY Tdap; Series #: 1; .5 mL; IM; Left Arm; Mfg: [employer]; Lot: [id number]. [facility] Immunization Administration One Vaccine Immunization Administration One Vaccine 50230 2013 ALYSSA FOLEY [facility] Audiogram (Screening) Audiogram (Screening) 12802 2013 KEM LITTLE [facility] Visual Function Screening Visual Function Screening 92089 2013 MATT DOMINGUEZ [facility] Audiometry Group Testing Audiometry Group Testing 52807 2012 EILEEN VERA [facility] Patient education, not otherwise cla ified, non-physician provider, group, per se ion 2012 EILEEN VERA [facility] Postoperative Visit, Without Charge Postoperative Visit, Without Charge 68086 2011 CECILY LLAMAS [facility] Surgery Of Male Genitalia Vasectomy Surgery Of Male Genitalia Vasectomy 58849 2011 CECILY LLAMAS [facility] Ear Protector Attenuation Measurements Ear Protector Attenuation Measurements 11012 2010 CHRISTEL VILCHIS [facility] Audiometry Group Testing Audiometry Group Testing 28781 2010 CHRISTEL VILCHIS Patient education, not otherwise cla ified, non-physician provider, group, per se ion 2010 CHRISTEL VILCHIS [facility] Patient education, not otherwise cla ified, non-physician provider, group, per se ion 2009 DENISE DIEZ Ear Protector Attenuation Measurements Ear Protector Attenuation Measurements 88263 2009 DENISE DIEZ Audiometry Group Testing Audiometry Group Testing 53477 2009 DENISE DIEZ Non-Physician Phone Call To Patient/Provider Brief (5-10min) Non-Physician Phone Call To Patient/Provider Brief (5-10min) 38907 2008 CARMINA REED [facility] Determination Of Refractive State Determination Of Refractive State 10682 2006 TRENT PASCAL Ophthalmological New Patient Start Comprehensive Care Ophthalmological New Patient Start Comprehensive Care 66841 2006 TRENT PASCAL Threshold Audiogram (Pure Tone) Automated Threshold Audiogram (Pure Tone) Automated 0208T LUCIA PEARL [facility] Patient education, not otherwise cla ified, non-physician provider, individual, per se ion LUCIA PEARL ANU [facility] Psychiatric Evaluation Comprehensive Examination Psychiatric Evaluation Comprehensive Examination 32304 CAMILAYANETHADELINEMOISES [facility] Preventive Medicine Therapy Patient Screening High-Risk Sexual Behavior Preventive Medicine Therapy Patient Screening High-Risk Sexual Behavior 4293F [facility] Preventive Med Performance Of Chlamydia And Gonorrhea Screenings Documented Preventive Med Performance Of Chlamydia And Gonorrhea Screenings Documented 3511F ALEGRIA [facility] Serum RPR Serum RPR 39601 [facility] Preventive Med Performance Of Syphilis Screening Documented Preventive Med Performance Of Syphilis Screening Documented 3512F ALEGRIA [facility] Serum Viral Antibody HIV-1 And HIV-2 (Single A ay) Serum Viral Antibody HIV-1 And HIV-2 (Single Assay) 61203 ALEGRIA [facility] Venipuncture Venipuncture 07274 ALEGRIA [facility] Preventive Med Documented/Reviewed Testing For Hepatitis B Preventive Med Documented/Reviewed Testing For Hepatitis B 3513F ALERGIA [facility] Preventive Med Documented/Reviewed Testing For Hepatitis C Preventive Med Documented/Reviewed Testing For Hepatitis C 3514F AIRAM [facility] Psychiatric Therapy Individual Approximately 45-50 Minutes Psychiatric Therapy Individual Approximately 45-50 Minutes 37639 XOCHITLMOISES [facility] Psychiatric Therapy Individual Approximately 20-30 Minutes Psychiatric Therapy Individual Approximately 20-30 Minutes 25125 [facility] Psychiat Therapy Indiv Appr 20-30 Min W/ Med Eval Managemt Psychiat Therapy Indiv Appr 20-30 Min W/ Med Eval Managemt 45863 TATI SANCHEZ [facility] Destruction Of Benign Lesion By Laser Surgery Destruction Of Benign Lesion By Laser Surgery 70996 CHRISTIE QUICK [facility] Social History Combined list of available smoking, tobacco, and other social history from [facility] and [facility] facilities. Social History Type Response Date Comment Sour e Sex Representation Male (finding) 04/21/2020 Un known Organization Sexual Orientation [facility] Gender identity [facility] This section is an empty social history section. [facility] Assessment and Plan Combined list of future care activities from Department of Defense and Veterans Affairs facilities (e.g., assessment and plan notes, appointments, orders, and referrals). Additional future care activities may be listed in the Plan of Care section. Result Assessment and Plan Date Source Assessment and Plan Extracted from:Title : final Author: LUCIA LOPEZ Date: 01/03/22 1Jerri MASTERS, FORMAL OCCUPATIONAL HEALTH PROGRAM INCLUDING HEARING CONSERVATION PROGRAM, DUE TO TERMINATION OF OCCUPATIONAL WORKPLACE EXPOSURE 1) PT is to follow-up in 72 hours with [facility] for follow up testing, after 14 hours of auditory rest 2) PT indicated understanding and signed statement on audiogram that is attached in [facility] 03/22/[address] [place] [address] Functional Status Combined list of recent functional and cognitive assessments recorded at [facility] Functional [place] Measurement (FIM) Scale: 1 = Total Assistance (Subject = 0% +), 2 = Maximal Assistance (Subject = 25% +), 3 = Moderate Assistance (Subject = 50% +), 4 = Minimal Assistance (Subject = 75% +), 5 = Supervision, 6 = Modified Wood[place] (Device), 7 = Complete [place] (Timely, Safely). Assessment Date/Time Source Assessment Type Assessment Skill Assessment Score Assessment Details No data available for this section
--- NOTE | 2025-03-22 07:29 | WPDANESEPPF ---
Anes - Initial Pre Proc Eval Procedure: Operation Date: 03/22/25 10:30 Proposed Procedures p Excision of Complex Pilonidal Cyst - Lina Correa MD Date/Time: 03/22/25 07:29 Surgeon: Lina Correa MD Pre Op Diagnosis: Pilonidal abscess Patient Data Age: 44 Gender: M Height: 1.78 m Weight: 102.3 kg Allergies Allergy/AdvReac Type Severity Reaction Status Date / Time No Known Allergies Allergy Verified 03/22/25 08:53 Home Medications ?Medication ?Instructions ?Recorded ?Confirmed ?Type lisinopril 10 1 tablet PO DAILY #90 tabs 01/29/25 03/11/25 Rx mg-hydrochlorothiazide 12.5 mg tablet sertraline 100 mg tablet 100 mg PO DAILY #30 tabs 02/02/25 03/11/25 Rx sertraline 50 mg tablet 50 mg PO DAILY #30 tabs 02/02/25 03/11/25 Rx dextroamphetamine-amphetamine 5 mg See Rx Instructions PO BID #90 tabs 02/18/25 03/11/25 Rx tablet (Adderall) rizatriptan 5 mg tablet See Rx Instructions PO .COMPLEX #9 02/18/25 03/11/25 Rx tabs amoxicillin 875 mg-potassium 1 tablet PO Q12H 03/22/25 03/22/25 History clavulanate 125 mg tablet Patient hx anesthesia problems: none Family hx anesthesia problems: none Results Review: All pre-operative results and documents have been reviewed as part of the pre-operative evaluation. [facility] Past Medical History Medical History Depression Screening for colon cancer BMI 32.0-32.9,adult Pilonidal cyst Left groin pain BMI 29.0-29.9,adult Screening for diabetes mellitus Erectile dysfunction Migraine with aura ELLA on CPAP Encounter to establish care Insomnia ADHD Alcoholism no use in 5 years TBI (traumatic brain injury) Sleep apnea Arthritis Hypertension Anxiety Migraine PTSD (post-traumatic stress disorder) Surgical History Surgical History History of vasectomy No pertinent past surgical history Family History Family History Mother Diabetes mellitus Depression Thyroid disease Sibling Hypertension Grandparent Carcinoma of colon Grandparent Carcinoma of colon Social History Social History Smoking packs per day: 1 Smoking cigarettes per day: 20.0 Years smoked: 20 Smoking pack-years: 20.00 Smoking status: Former smoker Tobacco type: cigarettes Alcohol intake: never Substance use: current Substance use type: marijuana Other substance usage details: 2x/month Current Housing: Decline to Answer Concerned About Future Housing: Decline to Answer Difficulty Paying Gas/Electric Bills: Decline to Answer Difficulty Paying for Meds: Decline to Answer Currently Unemployed: Decline to Answer Education: Decline to Answer Difficulty w/ Childcare or Family Care: Decline to Answer Living arrangements: alone Gender identity (if verbalized by the patient): Male Spiritual care concerns: No Anes - Eval Final PreProcedure Day of Procedure 03/22/25 07:29 Patient weight: obese Heart: regular rate and rhythm Lungs: clear to auscultation Airway: Mallampati scale class II Neurological: alert and oriented Last oral intake: >/= 8 hours ASA classification: III Emergent: no Anesthetic plan: proceed Anesthesia type and monitoring: general ETT and standard monitoring Results Review: All pre-operative results and documents have been reviewed as part of the pre-operative evaluation. Informed Consent: The patient's anesthetic plan and its attendant risks and benefits were discussed with the patient/family/POA. Questions were solicited and answers provided to the satisfaction of the patient/family/POA.
--- NOTE | 2025-03-22 07:51 | ECG_ITS ---
Test Date: 2025-03-22 09:00:34 Measurements Intervals [place] Rate: 61 P: 36 PA: 194 QRS: 46 QRSD: 86 T: 19 QT: 421 QTc: 425 Interpretive Statements SINUS RHYTHM NORMAL ELECTROCARDIOGRAM No previous ECG available for comparison Electronically Signed On 03-23-2025 09:50:58 CDT by Jason Ta M.D.
[2025-03-22] MEDS: LACTATED RINGERS 1,000 ML 30 ML IV CONT ×2 (08:45→11:27)
[2025-03-22 09:13] LABS: Anion Gap 9 mmol/L (4-12); Blood Urea Nitrogen 17 mg/dL (9-20); Calcium 8.8 mg/dL (8.4-10.2); Carbon Dioxide 23 mmol/L (22-30); Chloride 107 mmol/L (98-107); Estimated CRCL calculation 129 ml/min; Estimated Glomerular Filt Rate > 60; Glucose 99 mg/dL (65-110); Potassium 4.1 mmol/L (3.4-5.0); Sodium 139 mmol/L (137-145)
--- NOTE | 2025-03-22 10:24 | WPDHPUPDATE1 ---
History and Physical Update Update Date/Time: 03/22/25 10:24 History and Physical has been reviewed, including an updated exam of the patient. There are NO changes in the patient's condition. Risks, benefits, and alternatives have been discussed and questions answered. Patient agrees to proceed with procedure.
[2025-03-22] MEDS: ceFAZolin 2 GM in SODIUM CHLORIDE 0.9% IV 50 ML 100 ML IVPB (10:37)
[2025-03-22] MEDS: BUPIVACAINE/EPINEPHRINE 0.5% 30 ML VIAL INFILTRATE (11:00)
--- NOTE | 2025-03-22 11:45 | W.PM.PROC2 ---
Procedure Note - Detailed Date of Procedure 03/22/25 Pre-op Diagnosis Pilonidal abscess with tract measuring approximately 6 cm Post-op Diagnosis Same Procedure Performed excision pilonidal abscess with fistulectomy of pilonidal tract, pilonidal abscess measuring approximately 1.5 cm with tract measuring 6 cm Surgeon Lina Correa MD Anesthesia General and Local Indications 44-year-old male with recurrent pilonidal abscess and multiple infections despite conservative management Findings pilonidal abscess measuring approximately 1.5 cm with tract to 2 openings in the upper gluteal midline measuring 6 cm from abscess Description of Procedure The patient was taken the operating room and placed in the prone position. After induction of general anesthesia, the patient was prepped and draped in the normal sterile fashion. A time-out was then the patient's identity, as well as the procedure being performed. I began by localizing the area and around the abscess as well as the pilonidal sinus openings in the upper gluteal midline. I then used a lacrimal probe at the area of the abscess in the left buttock. This probe was noted to track to the openings in the upper gluteal midline. Given these findings, I excised the chronic abscess cavity in the left buttock. I then opened up the fistula tract over the probe to the 2 openings in the upper midline. Once widely opened, I used the Bovie cautery to cauterize the tract to promote healing. There was noted to be hair within the tract that was removed. Once completely opened, the area measured 1.5 x 6 cm. I then copiously irrigated the area. I then packed the entire wound with quarter-inch iodoform packing. Sterile dressing was then placed. The patient tolerated the procedure well and was extubated postoperatively. He will be transferred to the recovery room in stable condition. Estimated Blood Loss 10 Packing Yes Pathology Yes Complications No immediate complications Condition Stable Disposition PACU [facility] Billing Surgery - Charge Forward: Surgery Billing
== END 2025-03-22 12:59 | disposition home or self-care (01) ==
PROVIDERS: Anesthesiology; PCP Nurse Practitioner Family; Visit Provider Surgery
PROC: (CPT 11772; principal; 2025-03-22 10:30)
DX: L05.01 Pilonidal cyst with abscess (principal); I10 Essential (primary) hypertension; F41.9 Anxiety disorder, unspecified; F43.10 Post-traumatic stress disorder, unspecified; F32.A Depression, unspecified; N52.9 Male erectile dysfunction, unspecified; G47.33 Obstructive sleep apnea (adult) (pediatric); G47.00 Insomnia, unspecified; F90.9 Attention-deficit hyperactivity disorder, unspecified type; M19.90 Unspecified osteoarthritis, unspecified site; F12.90 Cannabis use, unspecified, uncomplicated; E66.9 Obesity, unspecified; Z68.33 Body mass index [BMI] 33.0-33.9, adult; Z99.89 Dependence on other enabling machines and devices; Z98.890 Other specified postprocedural states; Z87.891 Personal history of nicotine dependence; Z80.0 Family history of malignant neoplasm of digestive organs
CPT/HCPCS: 11772; 36415; 80048; 93005; J0690; J1100; J2003; J2250; J2405; J2704; J3010; J7120